=== PATIENT | male | born 1965 | race Caucasian/White ===

== ENCOUNTER 2021-10-10 23:26 | Inpatient (IN) | payer OTHER ==
--- NOTE | 2021-10-10 23:31 | ED ---
Recheck HPI - General Stated Complaint: Chest Pain Time Seen by Provider: 10/10/21 23:28 Source: RN notes reviewed, old records reviewed Mode of arrival: EMS Limitations: no limitations - History of Present Illness Initial Comments: This is a 55-year-old male to the emergency room today for evaluation. The patient presents today for evaluation regards to transfer him regards to episode of ventricular tachycardia. This time patient is without significant complaint. She does have history of atrial flutter and history of PVCs MD Complaint: other (Monitoring for abnormal heart rhythm) -: hour(s) Returns Today for: other (Symptoms are improved) Symptoms Since Prior Visit: no new symptoms Context: planned re-check Associated Symptoms: none Treatments Prior to Arrival: other medications, other (Patient was cardioverted at prior hospital) - Related Data Allergies Allergy/AdvReac Type Severity Reaction Status Date / Time No Known Allergies Allergy Verified 10/10/21 23:40 Review of Systems ROS Statement: Those systems with pertinent positive or pertinent negative responses have been documented in the HPI. ROS Other: All systems not noted in ROS Statement are negative. General Exam General appearance: alert, in no apparent distress Head exam: Present: atraumatic, normocephalic, normal inspection Eye exam: Present: normal appearance, PERRL, EOMI. Absent: scleral icterus, conjunctival injection, periorbital swelling ENT exam: Present: normal exam, mucous membranes moist Neck exam: Present: normal inspection. Absent: tenderness, meningismus, lymphadenopathy Respiratory exam: Present: normal lung sounds bilaterally. Absent: respiratory distress, wheezes, rales, rhonchi, stridor Cardiovascular Exam: Present: regular rate, normal rhythm, normal heart sounds. Absent: systolic murmur, diastolic murmur, rubs, gallop, clicks GI/Abdominal exam: Present: soft, normal bowel sounds. Absent: distended, tenderness, guarding, rebound, rigid Extremities exam: Present: normal inspection, full ROM, normal capillary refill. Absent: tenderness, pedal edema, joint swelling, calf tenderness Back exam: Present: normal inspection Neurological exam: Present: alert, oriented X3, CN II-XII intact Psychiatric exam: Present: normal affect, normal mood Skin exam: Present: warm, dry, intact, normal color. Absent: rash Course Vital Signs 10/10/21 23:40 Temperature 97.3 F L Pulse Rate 70 Respiratory 16 Rate Blood Pressure 118/64 O2 Sat by Pulse 98 Oximetry - Reevaluation(s) Reevaluation #1: 10/11/21 00:19 medical record is reviewed Reevaluation #2: 10/11/21 00:19 transferring paperwork is reviewed Reevaluation #3: 10/11/21 00:19 Patient informed results and questions answered Medical Decision Making - Medical Decision Making 55 male to the ER today for evaluation. Patient presents today for evaluation regards to abnormal heart rate with PVCs. Patient had episode of ventricular tachycardia which was cardioverted prior facility patient be admitted Here on amiodarone and have cardiology see Disposition Clinical Impression: Atrial flutter, Tachycardia, Ventricular tachycardia, Ventricular premature beats Disposition: ADMITTED IP TO THIS HOSP Condition: Fair Is patient prescribed a controlled substance at d/c from ED?: No Referrals: Ellie Gonzales NPC [Primary Care Provider] - 1-2 days
[2021-10-11] MEDS ORDERED: HEPARIN SOD,PORK IN 0.45% NACL 25,000 UNIT in 0.45% NACL 1 250ML.BAG IV SCH
[2021-10-11] MEDS ORDERED: AMIODARONE IN DEXTROSE,ISO-OSM 360 MG/200 ML PLAST..BAG IV ONE
[2021-10-11] MEDS ORDERED: MORPHINE SULFATE 4 MG/ML SYRINGE IV PRN (00:13)
[2021-10-11] MEDS ORDERED: NITROGLYCERIN SL TABS 0.4 MG TAB SUBLINGUAL PRN (00:13)
[2021-10-11] MEDS: SODIUM CHLORIDE 0.9% 1,000 ML IV SCH ×3 (00:45→12:40)
[2021-10-11] MEDS: AMIODARONE 360 MG in DEXTROSE 5% IN WATER 200 ML IV ONE ×4 (03:46)
[2021-10-11] MEDS: AMIODARONE 450 MG in DEXTROSE 5% IN WATER 250 ML IV SCH ×4 (04:00→18:53)
--- NOTE | 2021-10-11 09:00 | P.CRDCN ---
History of Present Illness Consult date: 10/11/21 Consult reason: other (Ventricular tachycardia) Chief complaint: Chest pain History of present illness: 55-year-old gentleman is [facility] [place] after his presentation there with chest pain and ventricular tachycardia. He has a history of PVCs with unsuccessful attempt at ablation and permanent pacemaker secondary to bradycardia in 2019 developed symptoms of congestive heart failure several weeks ago who was treated with diuretics with improvement in his symptoms he also had: A virus infection 4 weeks ago He follows with a stock drier tender in [place] but because he had problems getting in to his stock drier tender he went to [facility] and had been evaluated there by stock drier tender he hasn't had any testing done. Patient had a cardiac MRI in 2019 that revealed a structurally normal heart and normal LV function. A cardiac catheterization that revealed normal coronary arteries he had a stress echo that was negative I don't have the information on his permanent pacemaker but apparently he had a decrease in his LV function recently for which he went to [facility] At the time of my evaluation patient appears comfortable at rest and is free of symptoms. Yesterday his symptomatology started but shortness of breath chest discomfort dizziness and not feeling well symptoms were sudden onset moderate to severe intensity and he presented to the emergency room there he went into sustained monomorphic ventricular tachycardia for which he underwent defibrillation He is baseline rhythm is sinus and is intermittently pacing and he also has PVCs He is currently in IV amiodarone and IV heparin Troponin is elevated I'm going to obtain a 2-D echo to document his LV function I'm going to get records and his permanent pacemaker I advised him to undergo a cardiac catheterization to rule out significant obstructive CAD and if necessary do revascularization I will ask Dr. Dow the armored transport service manager to evaluate the patient for possible EP study VT ablation and are AICD placement Review of Systems Constitutional: Denies chills. Denies fever. Eyes: Denies blurred vision. Denies pain. Ears, nose, mouth and throat: Denies headache. Denies sore throat. Cardiovascular: Significant for chest pain Denies shortness of breath. Respiratory: Denies cough. Gastrointestinal: Denies abdominal pain. Denies diarrhea. Denies nausea. Denies vomiting. Musculoskeletal: Denies myalgias. Integumentary: Denies pruritus. Denies rash. Neurological: Denies numbness. Denies weakness. Psychiatric: Denies anxiety. Denies depression. Endocrine: Denies fatigue. Denies weight change. Genitourinary: Denies burning, hematuria, frequency of urination. Hematological: No anemia or excess bleeding. Past Medical History Additional Past Medical History / Comment(s): PVC's. Cardiomyopathy. Congestive heart failure. Permanent pacemaker History of Any Multi-Drug Resistant Organisms: None Reported Past Surgical History: Ablation, Pacemaker Past Psychological History: No Psychological Hx Reported Smoking Status: Never smoker Past Alcohol Use History: Occasional Past Drug Use History: None Reported Medications and Allergies Home Medications and Allergies Comment(s): I don't have a list of patient's home medications at this time Allergies Allergy/AdvReac Type Severity Reaction Status Date / Time Penicillins Allergy Unknown Verified 10/11/21 07:16 Physical Exam Vitals: Vital Signs Temp Pulse Resp BP Pulse Ox 10/11/21 08:32 98.2 F 10/11/21 08:31 70 18 114/84 97 10/11/21 06:57 70 16 111/78 98 10/11/21 03:00 69 16 102/70 98 10/11/21 02:00 69 15 109/70 10/11/21 01:00 72 8 L 105/68 10/10/21 23:40 97.3 F L 70 16 118/64 98 Intake and Output 10/10/21 10/11/21 10/11/21 22:59 06:59 14:59 Intake Total 153.887 Balance 153.887 Intake: Intake, IV Titration 153.887 Amount Amiodarone 360 mg In 153.887 Dextrose 5% in Water 200 ml @ 1 MG/MIN 33.333 mls/ hr IV .Q6H ONE Rx#: [id number] Other: Weight 122.47 kg General: The patient is awake and alert, in no distress, and does not appear acutely ill. Skin: Skin is warm and dry and no rashes or lesions are noted. Eye: Pupils are equal, round and reactive to light, extra-ocular movements are intact; there is normal conjunctiva bilaterally. Ears, nose, mouth and throat: There are moist mucous membranes and no oral lesions. Neck: The neck is supple, there is no tenderness or JVD. Cardiovascular: There is a regular rate and rhythm. No murmur, rub or gallop is appreciated. Respiratory: Lungs are clear to auscultation, respirations are non-labored, breath sounds are equal. Gastrointestinal: Soft, non-distended, non-tender abdomen without masses or organomegaly noted. There is no rebound or guarding present. Bowel sounds are unremarkable. Back: There is no tenderness to palpation in the midline. There is no obvious deformity. Musculoskeletal: Normal ROM, no tenderness, There is no pedal edema. There is no calf tenderness or swelling. Extremities: No edema. Vascular: Femoral pulse is normal. Posterior tibial pulses are normal .Dorsalis pedis is palpable. Neurological: CN II-XII intact. There are no obvious motor or sensory deficits. Speech is normal. Psychiatric: Cooperative, appropriate mood & affect, normal judgment. Results Cardiac Enzymes 10/11/21 10/11/21 Range/Units 00:56 03:43 Troponin I 1.480 H* 2.070 H* (0.000-0.034) ng/mL Coagulation 10/11/21 Range/Units 03:43 APTT 44.2 H (22.0-30.0) sec Current Medications Generic Name Dose Route Start Last Admin Trade Name Freq PRN Reason Stop Dose Admin Aspirin 325 mg 10/12/21 09:00 Aspirin 325 Mg Tab PO DAILY MARCELINO Heparin Sodium/Sodium Chloride 250 mls @ 14.696 mls/hr 10/11/21 00:00 10/11/21 00:00 25,000 unit/ Sodium Chloride IV 8.17 units/kg/hr .Q17H1M MARCELINO 10 mls/hr Administration Protocol 12 UNITS/KG/HR Sodium Chloride 1,000 mls @ 100 mls/hr 10/11/21 00:15 10/11/21 00:45 Saline 0.9% IV 100 mls/hr .Q10H MARCELINO Administration Amiodarone HCl 450 mg/ 250 mls @ 16.667 mls/hr 10/11/21 04:00 10/11/21 04:00 Dextrose/Water IV 10/11/21 21:59 0.5 mg/min .Q15H MARCELINO 16.667 mls/hr Administration Protocol 0.5 MG/MIN Morphine Sulfate 4 mg 10/11/21 00:13 Morphine Sulfate 4 Mg/Ml Syringe IV Q4HR PRN Chest Pain Nitroglycerin 0.4 mg 10/11/21 00:13 Nitroglycerin Sl Tabs 0.4 Mg Tab SUBLINGUAL Q5M PRN Chest Pain Intake and Output 10/10/21 10/11/21 10/11/21 22:59 06:59 14:59 Intake Total 153.887 Balance 153.887 Intake: Intake, IV Titration 153.887 Amount Amiodarone 360 mg In 153.887 Dextrose 5% in Water 200 ml @ 1 MG/MIN 33.333 mls/ hr IV .Q6H ONE Rx#: [id number] Other: Weight 122.47 kg EKG Interpretations (text) normal sinus rhythm Assessment and Plan Assessment: Symptomatic ventricular tachycardia Nonsustained VT history of bradycardia status post permanent pacemaker History of congestive heart failure Plan: Review his outpatient records Obtain CBC and electrolytes 2-D echo Cardiac catheterization to rule out obstructive CAD Continue IV amiodarone and beta blockers Consult EP
[2021-10-11] MEDS: METOPROLOL TARTRATE 12.5 MG TAB PO SCH ×2 (09:04→20:39)
[2021-10-11] MEDS ORDERED: ASPIRIN 325 MG TAB PO STA (09:30)
[2021-10-11] MEDS ORDERED: VERAPAMIL 2.5 MG/ML 2 ML AMP ONE (09:55)
[2021-10-11] MEDS ORDERED: LIDOCAINE 1% INJ 10MG/ML (20 ML MDV) ONE (09:55)
[2021-10-11] MEDS ORDERED: IV FLUID CONTINUATION 500 ML IV ONE (10:15)
[2021-10-11] MEDS ORDERED: MIDAZOLAM 2 MG/2 ML VIAL IV ONE (10:26)
[2021-10-11] MEDS ORDERED: fentaNYL (PF) 50 MCG/ML 2 ML AMP IV ONE (10:26)
[2021-10-11] MEDS ORDERED: LIDOCAINE 1% INJ 10MG/ML (20 ML MDV) SQ ONE (10:30)
--- NOTE | 2021-10-11 10:54 | ECHOF ---
Referral Reason:[facility] MEASUREMENTS -------- HEIGHT: 180.3 cm WEIGHT: 122.5 kg BP: RVIDd: 3.9 cm (< 3.3) IVSd: 1.5 cm (0.6 - 1.1) LVIDd: 4.5 cm (3.9 - 5.3) LVPWd: 1.7 cm (0.6 - 1.1) IVSs: 2.3 cm LVIDs: 2.9 cm LVPWs: 2.0 cm Ao Diam: 3.3 cm (2.0 - 3.7) AV Cusp: 2.1 cm (1.5 - 2.6) LA Diam: 2.6 cm (2.7 - 3.8) MV EXCURSION: 13.189 mm (> 18.000) MV EF SLOPE: 61 mm/s (70 - 150) EPSS: 1.4 cm MV E Osmany: 0.38 m/s MV DecT: 152 ms MV A Osmany: 0.62 m/s MV E/A Ratio: 0.62 RAP: 5.00 mmHg RVSP: 16.30 mmHg FINDINGS -------- Pacerwire seen in RV and RA. This was a technically difficult study with suboptimal views. The left ventricular size is normal. There is mild concentric left ventricular hypertrophy. Overa ll left ventricular systolic function is mild-moderately impaired with, an EF between 40 - 45 %. The right ventricle is mild to moderately enlarged. The left atrial size is normal. The right atrial size is normal. Lumason used The aortic valve is trileaflet and appears structurally normal. The mitral valve is normal. Mild mitral regurgitation is present. The tricuspid valve appears structurally normal. Mild tricuspid regurgitation present. Right vent ricular systolic pressure is normal at < 35 mmHg. There is no pulmonic regurgitation present. The aortic root size is normal. IVC Not well visulized. There is a trivial pericardial effusion present. CONCLUSIONS -------- 1. Pacerwire seen in RV and RA. 2. The left ventricular size is normal. 3. There is mild concentric left ventricular hypertrophy. 4. Overall left ventricular systolic function is mild-moderately impaired with, an EF between 40 - 45 %. 5. The right ventricle is mild to moderately enlarged. 6. Mild mitral regurgitation is present. 7. Mild tricuspid regurgitation present. 8. There is a trivial pericardial effusion present. VETERINARIAN: Aspen Ralph RDCS
[2021-10-11] MEDS ORDERED: IOPAMIDOL-370 100ML BTL INJ ONE (10:59)
[2021-10-11 11:35] LABS: HGB 14.8 gm/dL (13.0-17.5); MCH 30.1 pg (25.0-35.0); MCHC 32.1 g/dL (31.0-37.0); MCV 93.8 fL (80.0-100.0); Mean Platelet Volume 7.4; Platelet Count 219 k/uL (150-450); RBC 4.91 m/uL (4.30-5.90); RDW 12.9 % (11.5-15.5); WBC 6.6 k/uL (3.8-10.6)
[2021-10-11] MEDS ORDERED: RX INFO: IV CONTRAST WAS GIVEN 1 EACH MISC MISCELLANE PRN (11:35)
[2021-10-11 11:57] LABS: African American GFR (CKD) >90 (>60 ml/min/1.73 sqM); Anion Gap 7 mmol/L; Blood Urea Nitrogen 26 mg/dL (9-20); Calcium 8.9 mg/dL (8.4-10.2); Carbon Dioxide 26 mmol/L (22-30); Chloride 105 mmol/L (98-107); Glucose 111 mg/dL (74-99); Non-African American GFR(CKD) 82 (>60 ml/min/1.73 sqM); Potassium 3.9 mmol/L (3.5-5.1); Sodium 138 mmol/L (137-145)
--- NOTE | 2021-10-11 13:02 | CC ---
CARDIAC CATHETERIZATION REPORT INDICATION: Ventricular tachycardia. PROCEDURE NOTE: After obtaining informed consent, left heart catheterization and coronary angiogram were performed via the right femoral artery using standard Jorge Alberto catheters. Patient tolerated the procedure well without any obvious immediate complications. A femoral angiogram was performed and Angio-Seal was deployed for hemostasis. Patient received moderate conscious sedation. Total sedation time was 32 minutes. I initially attempted vascular access on the right radial artery and was unsuccessful. FINDINGS: HEMODYNAMICS: Left ventricular end-diastolic pressure is 16 mm. There is no significant gradient across the aortic valve. LEFT VENTRICULOGRAM: Left ventriculogram was not performed. ANGIOGRAPHIC DATA: Left main coronary artery. Left main coronary artery is a normal-sized vessel and is free of stenosis. It divides into left anterior descending coronary artery and circumflex coronary artery. LAD and its branches, circumflex coronary artery and its branches are free of significant stenosis. Right coronary artery is a large dominant vessel and is free of significant stenosis. CONCLUSIONS: 1. Normal coronary arteries. 2. Normal left ventricular end-diastolic pressure. PLAN: I reviewed angiographic data with the patient and told him that his that he does not have significant obstructive CAD. MMODL / IJN: [id number] /
--- NOTE | 2021-10-11 16:30 | XR ---
EXAMINATION TYPE: XR chest 2V DATE OF EXAM: 10/11/2021 COMPARISON: NONE HISTORY: CHF. TECHNIQUE: Frontal and lateral views of the chest are obtained. FINDINGS: Somewhat low lung volumes. There is no suspicious focal air space opacity, pleural effusio n, or pneumothorax seen. Cardiomegaly with dual-lead pacemaker noted. The osseous structures are in tact. IMPRESSION: Cardiomegaly without acute pulmonary process or overt failure.
--- NOTE | 2021-10-11 17:01 | P.HPIM ---
History of Present Illness H&P Date: 10/11/21 Chief Complaint: Chest pain This is a pleasant 55-year-old patient who follows with Dr. Daley. Has an extensive cardiac history. Chronic stable medical conditions include atrial flutter with ablation that was unsuccessful, then in [place], congestive heart failure, cardiac catheterization in 1999 that was negative, permanent pacemaker for bradycardia. About 3 weeks ago patient started becoming short of breath and felt more bloated. Went to his family doctor was started on Lasix. Patient did loose weight. Echocardiogram showed EF around 45%. Yesterday had gone to [facility] and coming back he became dizzy the chest discomfort. Bradycardia normal left arm. Lasted for quite a while. Was with activity. Some dizziness. Patient presented to [facility] with ventricular tachycardia. Patient subsequently was transferred here. Patient's troponins were positive. Patient is having sustained monomorphic V. tach he was defibrillated. Was put on IV amiodarone and IV heparin. Earlier today patient was taken for a cardiac catheterization by Dr. aLcy and did not show any significant disease. Post cath patient is on IV amiodarone. Review of systems: GEN.: Tired EYES: None HEENT: None NECK: None RESPIRATORY: As above CARDIOVASCULAR: As above GASTROINTESTINAL: None GENITOURINARY: None MUSCULOSKELETAL: None LYMPHATICS: None HEMATOLOGICAL: None PSYCHIATRY: None NEUROLOGICAL: None Past medical history to include: Atrial flutter with ablation unsuccessful, permanent pacemaker for bradycardia, congestive heart failure from viral infection. Social history: Patient does farming and also sells seeds. . No smoking. Alcohol occasionally. Family history: Hypertension, CAD Physical examination: VITAL SIGNS: 97.3, 70, 16, 118/64, 98% room air GENERAL: BMI 35.6, reclining in bed, awake, tired. EYES: Pupils equal. Conjunctiva normal. HEENT: External appearance of nose and ears normal, oral cavity grossly normal. NECK: JVD not raised; masses not palpable. HEART: First and second heart sounds are normal; no edema. LUNGS: Respiratory rate normal; clear to auscultation. ABDOMEN: Soft, nontender, liver spleen not palpable, no masses palpable. PSYCH: Alert and oriented x3; mood and affect normal. MUSCULOSKELETAL:No Clubbing/cyanosis;muscles-grossly intact NEUROLOGICAL: Cranial nerves grossly intact; no facial asymmetry, power and sensation grossly intact. LYMPHATICS: No lymph nodes palpable in the axilla and neck INVESTIGATIONS, reviewed in the clinical context: White count 6.6 hemoglobin 14.8 platelets 219 potassium 3.9 creatinine 1.03 Chest x-ray film personally reviewed by me-coronary megaly. Lung can clear. Pacemaker Troponin I 1.480, 2.0 Coronavirus [PCR]: Not detected Telemetry strip personally reviewed by me: Sinus rhythm 2-D echocardiogram: EF 40-45% mild mitral and tricuspid regurgitation. Assessment and plan: -Monomorphic ventricular tachycardia. Received IV amiodarone. Cardiac cath did not show any disease. -Acute non-Q wave myocardial infarction from hemodynamic mismatch precipitated b y ventricular tachycardia. Cardiac cath: Normal coronaries -Paroxysmal atrial flutter, currently sinus rhythm Telemetry. Lopressor 12.5 by mouth twice a day -Obesity BMI 35.6 Weight loss measures and follow with PCP -Acute on chronic nonischemic cardiomyopathy EF systolic dysfunction 40-45% Patient does take Demadex at home -IV heparin monitoring: discontinued Follow PTT Patient status post cardiac catheterization. On IV amiodarone drip. Lopressor. Normal saline 75 mL an hour per cardiology. Keep a close eye of the fluid status. Discussed with patient. Follow with cardiology. Past Medical History Past Medical History: Atrial Flutter Additional Past Medical History / Comment(s): PVC's. Cardiomyopathy. Congestive heart failure. Permanent pacemaker History of Any Multi-Drug Resistant Organisms: None Reported Past Surgical History: Ablation, Pacemaker Past Psychological History: No Psychological Hx Reported Smoking Status: Never smoker Past Alcohol Use History: Occasional Past Drug Use History: None Reported - Past Family History Father Family Medical History: Coronary Artery Disease (CAD), Hypertension Additional Family Medical History / Comment(s): Father had coronary stents/CABG Mother Family Medical History: Congestive Heart Failure (CHF) Medications and Allergies Home Medications Medication Instructions Recorded Confirmed Type Metoprolol Tartrate [Lopressor] 12.5 mg PO BID 10/11/21 10/11/21 History Torsemide [Demadex] 40 mg PO DAILY 10/11/21 10/11/21 History Allergies Allergy/AdvReac Type Severity Reaction Status Date / Time Penicillins Allergy Unknown Verified 10/11/21 07:16 Physical Exam Vitals: Vital Signs Temp Pulse Resp BP Pulse Ox 10/11/21 09:50 98 F 78 16 128/78 97 10/11/21 08:32 98.2 F 10/11/21 08:31 70 18 114/84 97 10/11/21 06:57 70 16 111/78 98 10/11/21 03:00 69 16 102/70 98 10/11/21 02:00 69 15 109/70 10/11/21 01:00 72 8 L 105/68 10/10/21 23:40 97.3 F L 70 16 118/64 98 Intake and Output 10/10/21 10/11/21 10/11/21 22:59 06:59 14:59 Intake Total 153.887 Balance 153.887 Intake: Intake, IV Titration 153.887 Amount Amiodarone 360 mg In 153.887 Dextrose 5% in Water 200 ml @ 1 MG/MIN 33.333 mls/ hr IV .Q6H ONE Rx#: [id number] Other: Weight 122.47 kg Results CBC & Chem 7: 10/11/21 11:16 10/11/21 11:16 Labs: Abnormal Lab Results - Last 24 Hours (Table) 10/11/21 10/11/21 10/11/21 Range/Units 00:56 03:43 03:43 APTT 44.2 H (22.0-30.0) sec Troponin I 1.480 H* 2.070 H* (0.000-0.034) ng/mL
[2021-10-11] MEDS: METOPROLOL TARTRATE 25 MG TAB PO SCH (20:47)
--- NOTE | 2021-10-11 21:08 | P.EPCON ---
Electrophysiology Consult - EP Consult Electrophysiology Consult: This is Dr. Mathis dictating an electrophysiology consult on this patient The patient was interviewed and examined by me I had a very detailed discussion with the patient and his who was on the phone IMPRESSION / ASSESSMENT: Wide complex tachycardia consistent with left bundle branch block aberrancy, likely SVT with aberrancy History of SVT documented by the patient's financial planning consultant on pacemaker interrogation in April 2021 History of PVCs and normal cardiac MRI in the year 2019, no evidence for arrhythmogenic cardio myopathy or myocarditis at that time History of EP study and ganglionic ablation for bradycardia. PVCs were not inducible in 2019 Evidence of sick sinus syndrome and bradycardia status post dual-chamber pacemaker implant, Medtronic Intermittent RV pacing noted on twelve-lead EKGs over the last 24 hours, atrial pacing noted consistently 2-D echo today shows reduced LV systolic function and an enlarged right ventricle Reduced LV systolic function could be a result of RV pacing but I do not know the RV pacing percentage at this time However it could be extension of involvement from the right ventricular disease/ arrhythmogenic cardio myopathy/ ARVC However the time course of this development is quite rapid over the last 2 years, the possibility of a right ventricular myocarditis such as giant cell myocarditis should be considered although this is not a fulminant involvement PLAN: I would recommend interrogation of the device to confirm that this was an SVT. I would recommend a LifeVest since my working diagnosis is arrhythmogenic cardio myopathy/or right ventricular myocarditis I would recommend a diagnostic EP study after a few days since the patient has received 1 g of amiodarone IV No more IV amiodarone until the EP study is performed Metoprolol 25 mg twice daily for now Cardiac MRI subsequently, prior to any device upgrade After EP study and any SVT ablation and after the cardiac MRI and interrogation of the device, then the decision regarding implantation of a defibrillator with LV lead pacing, biventricular device Hopefully the RV pacing lead can be extracted since it is only 2-1/2 years old In the interim a LifeVest should be prescribed HPI Patient started getting dizzy and lightheaded yesterday when he was coming back and was driving He managed to get home and laid on the couch and he is feeling poorly short of breath but not really complaining of palpitations and os to son called EMS In EMS arrived the twelve-lead EKG showed a wide complex tachycardia at a rate of around 215 beats a minute with a left bundle branch block morphology However the QRS are upright in the inferior leads on the EMS EKG He was taken to [facility] where repeat EKG was performed and it showed a tachycardia at the rate of 208 beats a minute with a left bundle branch block morphology without concordance on the precordial leads but with negative QRSs in leads 3 and aVF Therefore there is a difference in the morphology of the 2 EKGs during the same tachycardia likely representing lead position He was cardioverted, start amiodarone and transferred to [facility] He is he underwent coronary angiography since his cardiac enzymes are abnormal and there was a presumptive diagnosis of ventricular tachycardia Coronary arteries are normal At this time the patient is resting comfortably in bed and has no symptoms ROS: No fever chills or rigors, no cough, phlegm or expectoration, no nausea, vomiting or diarrhea, no hematuria, dysuria, no musculoskeletal complaints, no strokes or seizures, no skin lesions. EXAMINATION: Blood pressure 89/69 115/75 Heart rates in the 70s atrial paced rhythm Normal heart sounds Normal breath sounds No lower extremity edema Orthopnea REVIEW OF LABS, ECG & MEDICAL DATA Abnormal cardiac enzymes of 1.48 and 2.1 consistent with hypoperfusion secondary to the tachycardia Normal coronary arteries Twelve-lead EKG at [facility] showed a wide complex tachycardia at 208 beats a minute with a left bundle branch block morphology with an R ST ration of 80 ms consistent with aberrant conduction There are no evidence for fusion beats a capture beats This is SVT with aberrancy In reviewing the patient's financial planning consultant notes from April 2021, the note states that the patient has SVT most likely AV conchita reentry based upon pacemaker interrogation done at that time Twelve-lead EKG during sinus rhythm performed by me this evening, after receiving a gram of amiodarone shows Atrial paced rhythm mildly prolonged AZ interval QRS fractionation with a split QRS in the precordial leads of V1 through V3, consistent with delayed terminal conduction, epsilon waves
[2021-10-12] MEDS: SODIUM CHLORIDE 0.9% 1,000 ML IV SCH (02:19)
[2021-10-12] MEDS ORDERED: ASPIRIN 325 MG TAB PO SCH (09:00)
[2021-10-12] MEDS: METOPROLOL TARTRATE 25 MG TAB PO SCH ×2 (09:01→21:29)
[2021-10-12] MEDS: ASPIRIN 81 MG PO SCH (09:01)
[2021-10-12 11:15] LABS: Chol/HDL Ratio 5.38 Ratio; LDL Cholesterol,Calculated 108.1 mg/dL (0.0-131.0)
--- NOTE | 2021-10-12 12:36 | P.PN ---
Subjective This is a 55-year-old male with a past medical history of SVT, PVCs, sick sinus syndrome and bradycardia status post dual-chamber pacemaker implant 2019 (medtronic). He follows with a rehabilitation counsellor in [place] but because he had problems getting into his rehabilitation counsellor he went to [facility] and had been evaluated there by rehabilitation counsellor he hasn't had any testing done. We are consulted for ventricular tachycardia. Patient was transferred to [facility] from [place] after his presentation there with chest pain and ventricular tachycardia. He had developed symptoms of congestive heart failure several weeks ago who was treated with diuretics with improvement in his symptoms he also had a virus infection 4 weeks ago. Patient had a cardiac MRI in 2019 that revealed a structurally normal heart and normal LV function. A cardiac catheterization that revealed normal coronary arteries he had a stress echo that was negative. Apparently he had a decrease in his LV function recently for which he went to [facility]. Patient presented to the emergency department with complaints of shortness of breath, chest discomfort, dizziness and not feeling well symptoms were sudden onset moderate to severe intensity. In the ER he went into sustained monomorphic ventricular tachycardia for which he underwent defibrillation. He was started on IV amiodarone and IV heparin. Troponin is elevated at 2.7. Echocardiogram revealed EF 4045 percent, enlarged right ventricle mild mitral regurgitation, mild tricuspid regurgitation. Patient underwent cardiac catheterization with Dr. Pinon which revealed normal coronary arteries and normal LVEDP. 10/12/21 Patient seen and examined at bedside, he has no complaints. He feels well. Denies any chest pain, shortness of breath, leg numbness, dizziness, palpitations. Blood pressure 112/70, heart rate 69, afebrile, saturation 96% on room air. Telemetry reviewed, patient is atrial pacing, no further evidence of SVT. He is currently maintained on metoprolol titrate 25 mg twice a day, aspirin 81 mg daily, torsemide 40 mg daily. GENERAL: Well-appearing, well-nourished and in no acute distress. NECK: Supple without JVD or thyromegaly. LUNGS: Breath sounds clear to auscultation bilaterally. Respiration equal and unlabored. No wheezes, rales or rhonchi. HEART: Regular rate and rhythm without murmurs, rubs or gallops. S1 and S2 heard. EXTREMITIES: Normal range of motion, no edema. No clubbing or cyanosis. Peripheral pulses intact. SKIN: Right groin site, clean dry intact, no hematoma 2+peripheral pulses ASSESSMENT Symptomatic supraventricular tachycardia History of SVT History of PVCs Sick sinus syndrome and bradycardia status post dual-chamber pacemaker implant in 2019 Non-ischemic cardiomyopathy History of congestive heart failure PLAN Patient evaluated by Dr. Mathis, wide complex tachycardia consistent with left bundle branch block aberrancy, likely SVT with aberrancy. Interrogation of device to be performed today Recommend a LifeVest since due to risk of arrhythmia and sudden cardiac secondary to diagnosis possibly arrhythmogenic cardiomyopathy/or right ventricular myocarditis From a cardiology perspective, patient may be discharged once LifeVest delivered Patient will follow up with Dr Pinon outpatient and likely diagnostic EP study outpatient with Dr. Mathis Nurse Practitioner note has been reviewed, I agree with a documented findings and plan of care. Patient was seen and examined. Objective - Vital Signs Vital signs: Vital Signs Temp 98.1 F 10/12/21 08:00 Pulse 69 10/12/21 08:00 Resp 18 10/12/21 08:00 BP 112/70 10/12/21 08:00 Pulse Ox 96 10/12/21 08:00 Intake & Output 10/11/21 10/12/21 10/12/21 18:59 06:59 18:59 Intake Total 1898.061 120 Output Total 500 Balance 1398.061 120 Weight 122.47 kg 126.8 kg Intake: IV 450 Intake, IV Titration 248.061 Amount Amiodarone 450 mg In 248.061 Dextrose 5% in Water 250 ml @ 0.5 MG/MIN 16.667 mls/hr IV .Q15H MARCELINO Rx#: [id number] Oral 1200 120 Output: Urine 500 Other: # Voids 1 2 - Labs CBC & Chem 7: 10/11/21 11:16 10/11/21 11:16 Labs: Abnormal Lab Results - Last 24 Hours (Table) 10/12/21 Range/Units 07:46 HDL Cholesterol 30.50 L (40.00-60.00) mg/dL
[2021-10-12] MEDS: TORSEMIDE 20 MG TAB PO SCH (13:33)
--- NOTE | 2021-10-12 13:54 | CDI ---
Documentation Clarification Form Date: 10/12/2021 01:40:36 PM From: Nohemy Beard CCS, CCDS Admit Date: 10/11/2021 12:13:00 AM Patient Name: Ghassan Ortiz Visit Number: [id number] Discharge Date: ATTENTION: The Clinical Documentation Specialists (CDI) and [facility] Coding Staff appreciate your assistance in clarifying documentation. Please respond to the clarification below the line at the bottom and electronically sign. The CDI & [facility] Coding staff will review the response and follow-up if needed. Please note: Queries are made part of the Legal Health Record. If you have any questions, please contact the author of this message via ITS. Dr. Pawan Banuelos: Per the 10/11 History & Physical, the following is documented: Acute Non-Q Wave Myocardial Infarction from hemodynamic mismatch precipitated by ventricular tachycardia. Per the 10/12 Cardiology Progress Note status post Heart Catheterization: Symptomatic supraventricular tachycardia. Additional clarification regarding the type of SC is requested. Patient History/Risk Factors per the 10/11 H/P: Atrial Flutter status post unsuccessful ablation, CHF nos, Previous Heart Catheterization 2000: negative, Permanent Pacemaker secondary to Bradycardia, Obesity, BMI 35.6, Acute on Chronic Nonischemic Cardiomyopathy with EF 40-45%. Clinical Indicators: Presented to the ED on 10/10 via EMS with Chest Pain. Transfer from [facility] where he presented with chest pain & ventricular tachycardia. Admit with Atrial Flutter, Tachycardia, Ventricular Tachycardia, Ventricular Premature Beats 10/10 VS: T 97.3, P 70, R 16, BP 118/64, PO 98 RA 10/11 LAB: APTT 44.2, BUN 26, Glucose 111, Troponin 2.070 10/11 CXR: Cardiomegaly without acute pulmonary process or overt failure. 10/11 Heart Catheterization: Normal coronary arteries. Treatment 10/11: Telemetry, O2 2Lnc, IV Amiodarone 200 mls @ 33.333 mls/hr q6H, IV Heparin 250 mls @ 14.696 mls/hr q17H, IV Morphine 4 mg q4/prn, Nitro sl, IV Na Cl 1,000 mls @ 100 mls/hr q10H, IV Amiodarone 250 mls @ 16.667 mls/hr q15H Please clarify the etiology the following: [ ] Type 2 SC due, please specify cause: [ ] Acute Non-Q Wave SC [ ] Myocardial Infarction ruled out [ ] Unable to determine [ ] Other Condition, please specify (Template Last Revised: November 2020) Acute non-Q-wave SC type II secondary to hemodynamic mismatch due to ventricular tachycardia MTDD
--- NOTE | 2021-10-12 15:29 | P.PN ---
Progress Note - Text Progress Note Date: 10/12/21 Chief Complaint: Chest pain This is a pleasant 55-year-old patient who follows with Dr. Dlaey. Has an extensive cardiac history. Chronic stable medical conditions include atrial flutter with ablation that was unsuccessful, then in [place], congestive heart failure, cardiac catheterization in 1999 that was negative, permanent pacemaker for bradycardia. About 3 weeks ago patient started becoming short of breath and felt more bloated. Went to his family doctor was started on Lasix. Patient did loose weight. Echocardiogram showed EF around 45%. Yesterday had gone to [facility] and coming back he became dizzy the chest discomfort. Bradycardia normal left arm. Lasted for quite a while. Was with activity. Some dizziness. Patient presented to [facility] with ventricular tachycardia. Patient subsequently was transferred here. Patient's troponins were positive. Patient is having sustained monomorphic V. tach he was defibrillated. Was put on IV amiodarone and IV heparin. Earlier today patient was taken for a cardiac catheterization by Dr. Lacy and did not show any significant disease. Post cath patient is on IV amiodarone. October 12: Patient had his pacemaker checked today. It did show V. tach. IV amiodarone was earlier discontinued. LifeVest has been ordered by Dr. Deandre Mathis. Patient feels better. Eating well. Up in a chair. Review of systems: Was done for constitutional, cardiovascular, GI, pulmonary. relevant finding as above Active Medications Aspirin (Aspirin 81 Mg) 81 mg PO DAILY [facility] Last Admin: 10/12/21 09:01 Dose: 81 mg Documented by: Metoprolol Tartrate (Metoprolol Tartrate 25 Mg Tab) 25 mg PO BID [facility] Last Admin: 10/12/21 09:01 Dose: 25 mg Documented by: Miscellaneous Information (Rx Info: Iv Contrast Was Given 1 Each Misc) 1 each MISCELLANE DAILY PRN PRN Reason: Per Protocol Stop: 10/13/21 11:35 Torsemide (Torsemide 20 Mg Tab) 40 mg PO DAILY [facility] Last Admin: 10/12/21 13:33 Dose: 40 mg Documented by: Past medical history to include: Atrial flutter with ablation unsuccessful, permanent pacemaker for bradycardia, congestive heart failure from viral infection. Social history: Patient does farming and also sells seeds. . No smoking. Alcohol occasionally. Family history: Hypertension, CAD Physical examination: VITAL SIGNS: 98.1, 69, 18, 112/70, 96% room air GENERAL: Sitting up in a chair, awake, comfortable EYES: Pupils equal. Conjunctiva normal. HEENT: External appearance of nose and ears normal, oral cavity grossly normal. NECK: JVD not raised; masses not palpable. HEART: First and second heart sounds are normal; no edema. LUNGS: Respiratory rate normal; clear to auscultation. ABDOMEN: Soft, nontender, liver spleen not palpable, no masses palpable. PSYCH: Alert and oriented x3; mood and affect normal. MUSCULOSKELETAL:No Clubbing/cyanosis;muscles-grossly intact INVESTIGATIONS, reviewed in the clinical context: LDL 108 White count 6.6 hemoglobin 14.8 platelets 219 potassium 3.9 creatinine 1.03 Chest x-ray film personally reviewed by me-coronary megaly. Lung can clear. Pacemaker Troponin I 1.480, 2.0 Coronavirus [PCR]: Not detected Telemetry strip personally reviewed by me: Sinus rhythm 2-D echocardiogram: EF 40-45% mild mitral and tricuspid regurgitation. Assessment and plan: -Monomorphic ventricular tachycardia. Received IV amiodarone. Cardiac cath did not show any disease. Awaiting LifeVest. -Acute non-Q wave myocardial infarction from hemodynamic mismatch precipitated by ventricular tachycardia. Cardiac cath: Normal coronaries -Paroxysmal atrial flutter, currently sinus rhythm Telemetry. Lopressor 25 mg by mouth twice a day -Obesity BMI 35.6 Weight loss measures and follow with PCP -Acute on chronic nonischemic cardiomyopathy EF systolic dysfunction 40-45% Demadex 40 mg daily -IV heparin monitoring: discontinued Follow PTT Amiodarone discontinued. Lopressor increased to 25 mg twice a day. Had his AICD checked today. Showed V. tach. LifeVest ordered. Patient seen by Dr. Deandre Mathis from electrophysiology.
[2021-10-12] MEDS: AMIODARONE 200 MG TAB PO SCH (20:14)
[2021-10-13 05:43] VITALS: RESP 18
[2021-10-13] MEDS: TORSEMIDE 20 MG TAB PO SCH (09:30)
[2021-10-13] MEDS: METOPROLOL TARTRATE 25 MG TAB PO SCH (09:30)
[2021-10-13] MEDS: ASPIRIN 81 MG PO SCH (09:30)
[2021-10-13 09:56] VITALS: TEMP 97.6
--- NOTE | 2021-10-13 12:02 | P.PN ---
Progress Note - Text Progress Note Date: 10/13/21 55-year-old gentleman with history of bradycardia status post permanent pacemaker PVCs presented to hospital with ventricular tachycardia for which she was defibrillated he has been evaluated with an it application architect who has reviewed all the data from the pacemaker and feels that the patient actually had a ventricular tachycardia as opposed to having in SVT with aberrancy Patient currently has a LifeVest on. He underwent cardiac catheterization that did not reveal significant obstructive CAD. We started him on amiodarone 200 twice a day going to discharge him home on the. His ventricular tachycardia may be related to the recent viral infection and viral myocarditis. I'm going to re peat an echo on him over the next several months and patient may need to have a repeat cardiac MRI and at some stage of the LV and the RV does not improve we may have to do an AICD on him On exam today is comfortable at rest vital signs are stable there is jugular venous distention carotid upstroke is normal there is no bruit chest exam is currently bilaterally heart exam reveals first and second heart sounds no gallop no murmur no rub abdomen is soft nontender exams extremities did not reveal any edema per for pulses are felt Assessment and plan: Ventricular tachycardia Status post permanent pacemaker I will treat the patient with amiodarone LifeVest Discharge him home today
[2021-10-13] MEDS: AMIODARONE 200 MG TAB PO SCH (12:36)
[2021-10-13 13:11] VITALS: BP 111/64; PULSE 70
--- NOTE | 2021-10-13 20:47 | P.DS ---
Providers Date of admission: 10/11/21 00:13 Expected date of discharge: 10/13/21 Attending physician: Pawan Banuelos Consults: 10/11/21 00:13 Consult Physician Urgent Consulting Provider: Rocío Moss Consult Reason/Comments: VT Do you want consulting provider notified?: Yes Primary care physician: [facility] Course: Chief Complaint: Chest pain This is a pleasant 55-year-old patient who follows with Dr. Daley. Has an extensive cardiac history. Chronic stable medical conditions include atrial flutter with ablation that was unsuccessful, then in [place], congestive heart failure, cardiac catheterization in 1999 that was negative, permanent pacemaker for bradycardia. About 3 weeks ago patient started becoming short of breath and felt more bloated. Went to his family doctor was started on Lasix. Patient did loose weight. Echocardiogram showed EF around 45%. Yesterday had gone to [facility] and coming back he became dizzy the chest discomfort. Bradycardia normal left arm. Lasted for quite a while. Was with activity. Some dizziness. Patient presented to [facility] with ventricular tachycardia. Patient subsequently was transferred here. Patient's troponins were positive. Patient is having sustained monomorphic V. tach he was defibrillated. Was put on IV amiodarone and IV heparin. Earlier today patient was taken for a cardiac catheterization by Dr. Lacy and did not show any significant disease. Post cath patient is on IV amiodarone. October 12: Patient had his pacemaker checked today. It did show V. tach. IV amiodarone was earlier discontinued. LifeVest has been ordered by Dr. Deandre Mathis. Patient feels better. Eating well. Up in a chair. October 13: Received LifeVest. Being discharge in amiodarone per cardiology. Lopressor. Bumex. Consultation: Cardiology associates and Dr. Deandre Mathis from EP service Past medical history to include: Atrial flutter with ablation unsuccessful, permanent pacemaker for bradycardia, congestive heart failure from viral infection. Social history: Patient does farming and also sells seeds. . No smoking. Alcohol occasionally. Family history: Hypertension, CAD Physical examination: VITAL SIGNS: 70, 18, 111/64, 95% room air GENERAL: Propped up in bed, comfortable EYES: Pupils equal. Conjunctiva normal. HEENT: External appearance of nose and ears normal, oral cavity grossly normal. NECK: JVD not raised; masses not palpable. HEART: First and second heart sounds are normal; no edema. LUNGS: Respiratory rate normal; clear to auscultation. ABDOMEN: Soft, nontender, liver spleen not palpable, no masses palpable. PSYCH: Alert and oriented x3; mood and affect normal. MUSCULOSKELETAL:No Clubbing/cyanosis;muscles-grossly intact INVESTIGATIONS, reviewed in the clinical context: LDL 108 White count 6.6 hemoglobin 14.8 platelets 219 potassium 3.9 creatinine 1.03 Chest x-ray film personally reviewed by me-coronary megaly. Lung can clear. Pacemaker Troponin I 1.480, 2.0 Coronavirus [PCR]: Not detected Telemetry strip personally reviewed by me: Sinus rhythm 2-D echocardiogram: EF 40-45% mild mitral and tricuspid regurgitation. Assessment and plan: -Monomorphic ventricular tachycardia. Confirmed on pacemaker check Received IV amiodarone. Cardiac cath did not show any disease. Awaiting LifeVest. -Acute non-Q wave myocardial infarction from hemodynamic mismatch precipitated by ventricular tachycardia. Cardiac cath: Normal coronaries -Pacemaker -Paroxysmal atrial flutter, currently sinus rhythm Telemetry. Lopressor 25 mg by mouth twice a day -Obesity BMI 35.6 Weight loss measures and follow with PCP -Acute on chronic nonischemic cardiomyopathy EF systolic dysfunction 40-45% Demadex 40 mg daily. LifeVest. -IV heparin monitoring: discontinued Follow PTT Disposition: Home Plan - Discharge Summary Discharge Rx Participant: No New Discharge Prescriptions: New Amiodarone [Cordarone] 200 mg PO BID #60 tab Metoprolol Tartrate [Lopressor] 25 mg PO BID 30 Days #60 tab Continue Torsemide [Demadex] 40 mg PO DAILY Discontinued Metoprolol Tartrate [Lopressor] 12.5 mg PO BID Discharge Medication List Torsemide [Demadex] 40 mg PO DAILY 10/11/21 [History] Metoprolol Tartrate [Lopressor] 25 mg PO BID 30 Days #60 tab 10/12/21 [Rx] Amiodarone [Cordarone] 200 mg PO BID #60 tab 10/13/21 [Rx] Follow up Appointment(s)/Referral(s): Ellie Gonzales NPC [REFERRING] - 1-2 days (Please call to set up a follow- up appointment) Roberto Pinon MD [STAFF PHYSICIAN] - 1 Week (Please call office to make a follow-up appointment) Discharge Disposition: HOME SELF-CARE
--- NOTE | 2021-10-16 14:00 | CDI ---
Documentation Clarification Form Date: 10/16/21 From: Nancy Leon Admit Date: 10/11/2021 12:13:00 AM Patient Name: Ghassan Ortiz Visit Number: [id number] Discharge Date: 10/13/2021 05:04:00 PM ATTENTION: The Clinical Documentation Specialists (CDI) and [facility] Coding Staff appreciate your assistance in clarifying documentation. Please respond to the clarification below the line at the bottom and electronically sign. The CDI & [facility] Coding staff will review the response and follow-up if needed. Please note: Queries are made part of the Legal Health Record. If you have any questions, please contact the author of this message via ITS. Dr. Roberto Pinon, Atrial Flutter is documented in the ED Note, H&P PNs and DS. Additional clarification regarding the type of Atrial Flutter is requested. History/Risk factors: V tach, NSTEMI, non-ischemic cardiomyopathy, chronic systolic CHF, SSS, SVT, s/p pacemaker Clinical Indicators: Chronic stable medical conditions include atrial flutter with ablation that was unsuccessful. EKG/telemetry: sinus rhythm Treatment: Lopressor & Demadex at home Please clarify the type of Atrial Flutter, if known: [ ] Typical/Type I [ ] Atypical/Type II [ ] Other, please specify [ ] Unable to determine i have not documented aflutter please don"t waste time _with queries not pertinenet to me MTDD
--- NOTE | 2021-10-25 12:52 | CDI ---
Documentation Clarification Form Date: 10/25/21 From: Nancy Leon Admit Date: 10/11/2021 12:13:00 AM Patient Name: Ghassan Ortiz Visit Number: [id number] Discharge Date: 10/13/2021 05:04:00 PM ATTENTION: The Clinical Documentation Specialists (CDI) and [facility] Coding Staff appreciate your assistance in clarifying documentation. Please respond to the clarification below the line at the bottom and electronically sign. The CDI & [facility] Coding staff will review the response and follow-up if needed. Please note: Queries are made part of the Legal Health Record. If you have any questions, please contact the author of this message via ITS. Dr. Pawan Banuelos, Atrial Flutter is documented in the ED Note, H&P PNs and DS. Additional clarification regarding the type of Atrial Flutter is requested. History/Risk factors: V tach, NSTEMI, nonischemic cardiomyopathy, chronic systolic CHF, SSS, SVT, s/p pacemaker Clinical Indicators: Chronic stable medical conditions include atrial flutter with ablation that was unsuccessful. EKG/telemetry: sinus rhythm Treatment: Lopressor & Demadex at home Please clarify the type of Atrial Flutter, if known: [ ] Typical/Type I [ ] Atypical/Type II [ ] Other, please specify [ ] Unable to determine MTDD
== END 2021-10-13 17:04 | disposition home or self-care (01) | DRG 281 ==
LOC: EC 23:26 → 3SCARD 10-11 00:13
PROVIDERS: ADMIT Hospitalist; ATTEND Hospitalist
PROC: B2111ZZ Fluoroscopy of Multiple Coronary Arteries using Low Osmolar Contrast (ICD-10-PCS; 2021-10-11)
PROC: 4A023N7 Measurement of Cardiac Sampling and Pressure, Left Heart, Percutaneous Approach (ICD-10-PCS; principal; 2021-10-11 14:50)
DX: I47.2 Ventricular tachycardia (principal); I21.A1 Myocardial infarction type 2; I42.8 Other cardiomyopathies; I50.22 Chronic systolic (congestive) heart failure; I49.5 Sick sinus syndrome; I48.92 Unspecified atrial flutter; I47.1 Supraventricular tachycardia; Z20.822 Contact with and (suspected) exposure to COVID-19; B34.9 Viral infection, unspecified; I44.7 Left bundle-branch block, unspecified; I08.1 Rheumatic disorders of both mitral and tricuspid valves; E66.9 Obesity, unspecified; Z68.36 Body mass index [BMI] 36.0-36.9, adult; Z79.899 Other long term (current) drug therapy; Z86.19 Personal history of other infectious and parasitic diseases; Z95.0 Presence of cardiac pacemaker; Z88.0 Allergy status to penicillin; Z82.49 Family history of ischemic heart disease and other diseases of the circulatory system
CPT/HCPCS: 71046; 80048; 80061; 84484; 85027; 85730; 87635; 93005; 93306; 93458; 96374; 99285

== ENCOUNTER → 2021-12-07 | Outpatient (CLI) | payer OTHER ==
[2021-12-07 18:15] LABS: HCT 43.9 % (39.6-50.0); HGB 14.2 g/dL (13.0-17.0); MCH 30.1 pg (27.0-32.0); MCHC 32.3 g/dL (32.0-37.0); Mean Platelet Volume 10.5 fL (9.5-12.2); NRBC Per 100 WBC 0 /100 WBCS (0.0-0.0); Platelet Count 204 X 10*3/uL (140-440); RBC 4.72 X 10*6/uL (4.40-5.60); RDW 14.1 % (11.5-14.5); WBC 4.25 X 10*3/uL (4.50-10.00)
[2021-12-07 18:41] LABS: Anion Gap 14.7 mmol/L (10.00-18.00); Carbon Dioxide 26.3 mmol/L (20.0-27.5); Potassium 4.1 mmol/L (3.5-5.5)
== END | disposition home or self-care (01) ==
LOC: LABWHC1 11:28
PROVIDERS: ATTEND Internal Medicine Cardiovascular Disease
DX: I50.22 Chronic systolic (congestive) heart failure (principal)
CPT/HCPCS: 36415; 80051; 83880; 84443; 85027

== ENCOUNTER 2022-06-08 02:21 | Inpatient (IN) | payer OTHER ==
[2022-06-08] MEDS ORDERED: SODIUM CHLORIDE 0.9% 1,000 ML IV STA (02:27)
--- NOTE | 2022-06-08 02:27 | ED ---
Weakness HPI - General Chief complaint: Chest Pain Stated complaint: Palpitations Time Seen by Provider: 06/08/22 02:26 Source: patient, EMS, RN notes reviewed, old records reviewed Mode of arrival: EMS Limitations: no limitations - History of Present Illness Initial comments: This is a 56-year-old male coming in with history of tachycardia or SVT V. tach coming in for evaluation of chest.. Patient's chest pain is now resolved upon arrival been taking all medications as recommended. No fevers cough or congestion of travel history or sick contacts no other complaints MD Complaint: generalized weakness, lack of energy, difficulty walking -: hour(s) Location: generalized Severity: moderate Severity scale (1-10): 5 Quality: tingling, numbness, aching Consistency: constant Improves with: none Worsens with: none Context: recent illness, history of similar Associated Symptoms: nausea/vomiting, shortness of breath, syncope - Related Data Home Medications Medication Instructions Recorded Confirmed Amiodarone [Cordarone] 200 mg PO DAILY 01/01/22 01/01/22 Losartan [Cozaar] 25 mg PO DAILY 01/01/22 01/01/22 Metoprolol Tartrate 25 mg PO BID 01/01/22 01/01/22 Torsemide [Demadex] 40 mg PO DAILY 01/01/22 01/02/22 Previous Rx's Medication Instructions Recorded Metoprolol Succinate (ER) [Toprol 50 mg PO DAILY #90 tab 01/02/22 XL] Allergies Allergy/AdvReac Type Severity Reaction Status Date / Time No Known Allergies Allergy Verified 12/28/21 09:30 Review of Systems ROS Statement: Those systems with pertinent positive or pertinent negative responses have been documented in the HPI. ROS Other: All systems not noted in ROS Statement are negative. Past Medical History Past Medical History: Atrial Flutter, Heart Failure Additional Past Medical History / Comment(s): PVC's. Cardiomyopathy. Congestive heart failure. Permanent pacemaker. 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 Past Anesthesia/Blood Transfusion Reactions: No Reported Reaction Type of Cardiac Device: Permanent Pacemaker Device Placement Date:: 2019 Smoking Status: Never smoker - Past Family History Father Family Medical History: Coronary Artery Disease (CAD), Hypertension Additional Family Medical History / Comment(s): Father had coronary stents/CABG Mother Family Medical History: Congestive Heart Failure (CHF) General Exam Limitations: no limitations General appearance: alert, in no apparent distress, anxious Head exam: Present: atraumatic, normocephalic, normal inspection Eye exam: Present: normal appearance, PERRL, EOMI. Absent: scleral icterus, conjunctival injection, periorbital swelling ENT exam: Present: normal exam, mucous membranes moist Neck exam: Present: normal inspection. Absent: tenderness, meningismus, lymphadenopathy Respiratory exam: Present: normal lung sounds bilaterally. Absent: respiratory distress, wheezes, rales, rhonchi, stridor Cardiovascular Exam: Present: regular rate, normal rhythm, normal heart sounds. Absent: systolic murmur, diastolic murmur, rubs, gallop, clicks GI/Abdominal exam: Present: soft, normal bowel sounds. Absent: distended, ten derness, guarding, rebound, rigid Extremities exam: Present: normal inspection, full ROM, normal capillary refill. Absent: tenderness, pedal edema, joint swelling, calf tenderness Back exam: Present: normal inspection Neurological exam: Present: alert, oriented X3, CN II-XII intact Psychiatric exam: Present: normal affect, normal mood Skin exam: Present: warm, dry, intact, normal color. Absent: rash Course Vital Signs 06/08/22 02:22 Temperature 97.9 F Pulse Rate 68 Respiratory 18 Rate Blood Pressure 126/98 O2 Sat by Pulse 95 Oximetry - Reevaluation(s) Reevaluation #1: 06/08/22 04:29 Medical record is reviewed Reevaluation #2: 06/08/22 04:29 Patient remains in a paced rhythm throughout entire ER stay 06/08/22 04:29 Patient will be admitted for pacemaker interrogation Reevaluation #3: 06/08/22 04:29 Patient informed results questions answered - Consultations Consultation #1: Spoke with Dr. Banuelos who agrees to admit this patient EKG Findings - EKG Comments: EKG Findings:: EKG shows paced 74 MN 192 QRS 101 QTC 410 Medical Decision Making - Medical Decision Making 56 male DF for evaluation patient coming in for chest pain tachycardia non-ST elevated [place] under paced rhythm. Patient has prior heart catheterization showing normal coronary arteries. Patient will be admitted for cardiology evaluation management as well as trending of troponin - Lab Data Result diagrams: 06/08/22 02:32 06/08/22 02:32 Lab Results 06/08/22 06/08/22 06/08/22 Range/Units 02:32 02:32 02:32 WBC 4.2 (3.8-10.6) k/uL RBC 4.71 (4.30-5.90) m/uL Hgb 14.9 (13.0-17.5) gm/dL Hct 45.1 (39.0-53.0) % MCV 95.8 (80.0-100.0) fL MCH 31.6 (25.0-35.0) pg MCHC 33.0 (31.0-37.0) g/dL RDW 15.4 (11.5-15.5) % Plt Count 159 (150-450) k/uL MPV 7.7 Neutrophils % 71 % Lymphocytes % 14 % Monocytes % 5 % Eosinophils % 8 % Basophils % 1 % Neutrophils # 3.0 (1.3-7.7) k/uL Lymphocytes # 0.6 L (1.0-4.8) k/uL Monocytes # 0.2 (0-1.0) k/uL Eosinophils # 0.3 (0-0.7) k/uL Basophils # 0.1 (0-0.2) k/uL PT 12.7 H (9.0-12.0) sec INR 1.2 H (<1.2) APTT 24.8 (22.0-30.0) sec Sodium 140 (137-145) mmol/L Potassium 3.6 (3.5-5.1) mmol/L Chloride 100 (98-107) mmol/L Carbon Dioxide 27 (22-30) mmol/L Anion Gap 13 mmol/L BUN 16 (9-20) mg/dL Creatinine 1.21 (0.66-1.25) mg/dL Est GFR (CKD-EPI)AfAm 78 (>60 ml/min/1.73 sqM) Est GFR (CKD-EPI)NonAf 67 (>60 ml/min/1.73 sqM) Glucose 115 H (74-99) mg/dL Calcium 9.3 (8.4-10.2) mg/dL Phosphorus 4.6 H (2.5-4.5) mg/dL Magnesium 1.8 (1.6-2.3) mg/dL Total Bilirubin 1.5 H (0.2-1.3) mg/dL AST 29 (17-59) U/L ALT 16 (4-49) U/L Alkaline Phosphatase 83 (38-126) U/L Troponin I (0.000-0.034) ng/mL NT-Pro-B Natriuret Pep pg/mL Total Protein 6.6 (6.3-8.2) g/dL Albumin 3.8 (3.5-5.0) g/dL 06/08/22 06/08/22 Range/Units 02:32 02:32 WBC (3.8-10.6) k/uL RBC (4.30-5.90) m/uL Hgb (13.0-17.5) gm/dL Hct (39.0-53.0) % MCV (80.0-100.0) fL MCH (25.0-35.0) pg MCHC (31.0-37.0) g/dL RDW (11.5-15.5) % Plt Count (150-450) k/uL MPV Neutrophils % % Lymphocytes % % Monocytes % % Eosinophils % % Basophils % % Neutrophils # (1.3-7.7) k/uL Lymphocytes # (1.0-4.8) k/uL Monocytes # (0-1.0) k/uL Eosinophils # (0-0.7) k/uL Basophils # (0-0.2) k/uL PT (9.0-12.0) sec INR (<1.2) APTT (22.0-30.0) sec Sodium (137-145) mmol/L Potassium (3.5-5.1) mmol/L Chloride (98-107) mmol/L Carbon Dioxide (22-30) mmol/L Anion Gap mmol/L BUN (9-20) mg/dL Creatinine (0.66-1.25) mg/dL Est GFR (CKD-EPI)AfAm (>60 ml/min/1.73 sqM) Est GFR (CKD-EPI)NonAf (>60 ml/min/1.73 sqM) Glucose (74-99) mg/dL Calcium (8.4-10.2) mg/dL Phosphorus (2.5-4.5) mg/dL Magnesium (1.6-2.3) mg/dL Total Bilirubin (0.2-1.3) mg/dL AST (17-59) U/L ALT (4-49) U/L Alkaline Phosphatase (38-126) U/L Troponin I 0.115 H* (0.000-0.034) ng/mL NT-Pro-B Natriuret Pep 2880 pg/mL Total Protein (6.3-8.2) g/dL Albumin (3.5-5.0) g/dL Critical Care Time Critical Care Time: Yes Total Critical Care Time: 31 Disposition Clinical Impression: Atypical chest pain, Tachycardia, Ventricular premature beats, Panic attack, Acute non-ST elevation myocardial infarction (NSTEMI) Disposition: ADMITTED IP TO THIS HOSP Condition: Undetermined Is patient prescribed a controlled substance at d/c from ED?: No Time of Disposition: 04:30
[2022-06-08 02:48] LABS: Basophils # (A) 0.1 k/uL (0-0.2); Basophils % (A) 1 %; Eosinophils # (A) 0.3 k/uL (0-0.7); Eosinophils % (A) 8 %; HCT 45.1 % (39.0-53.0); HGB 14.9 gm/dL (13.0-17.5); Lymphocytes # (A) 0.6 k/uL (1.0-4.8); Lymphocytes % (A) 14 %; MCH 31.6 pg (25.0-35.0); MCV 95.8 fL (80.0-100.0); Mean Platelet Volume 7.7; Monocytes # (A) 0.2 k/uL (0-1.0); Monocytes % (A) 5 %; Neutrophils % (A) 71 %; Platelet Count 159 k/uL (150-450); RBC 4.71 m/uL (4.30-5.90); RDW 15.4 % (11.5-15.5); WBC 4.2 k/uL (3.8-10.6)
[2022-06-08 02:59] LABS: Albumin 3.8 g/dL (3.5-5.0); Calcium 9.3 mg/dL (8.4-10.2); Magnesium 1.8 mg/dL (1.6-2.3); Phosphorus 4.6 mg/dL (2.5-4.5); Potassium 3.6 mmol/L (3.5-5.1); Total Bilirubin 1.5 mg/dL (0.2-1.3); Total Protein 6.6 g/dL (6.3-8.2)
[2022-06-08 03:04] LABS: INR 1.2 (<1.2); Partial Thromboplastin Time 24.8 sec (22.0-30.0); Prothrombin Time 12.7 sec (9.0-12.0)
[2022-06-08] MEDS ORDERED: NITROGLYCERIN SL TABS 0.4 MG TAB SUBLINGUAL PRN (04:20)
[2022-06-08] MEDS ORDERED: ASPIRIN 81 MG PO STA ×2 (04:20→05:16)
[2022-06-08] MEDS ORDERED: MORPHINE SULFATE 4 MG/ML SYRINGE IV PRN (04:20)
[2022-06-08] MEDS: ATORVASTATIN 80 MG TAB PO SCH (08:49)
--- NOTE | 2022-06-08 09:45 | P.CRDCN ---
History of Present Illness Consult date: 06/08/22 Chief complaint: Chest discomfort and shortness of breath History of present illness: This is a 56-year-old gentleman who sees Dr. Pinon regularly with a past medical history significant for nonischemic cardiomyopathy and also history of sustained ventricular tachycardia status post BiV ICD as well as hypertension and dyslipidemia and obesity presented to the hospital after an episode last night. The patient was in his usual state of health he was sleeping in bed when he woke up complaining of chest discomfort. He tried to walk out of the bed when suddenly he felt that he was about to lose his consciousness. He felt clammy as well. He didn't have chest discomfort. His was at bedside. For that reason he decided to come to the emergency department. Before that episode he was not feeling well. Within the last several months he gained about 20 pounds. He stated that he has been compliant with his medication and he is on diuretic as an outpatient also he was compliant with his diet. He developed also a progressive shortness of breath with exertion within the last several months. He also developed lower edema. During this admission he underwent a workup including an AICD interrogation and that revealed episode of ventricular tachycardia treated. Otherwise the device interrogation showed that the patient was having biventricular pacing in more than 80% of the time. Also device interrogation showed possible fluid overload. When the patient was seen and examined this morning he definitely looks in failure. He does have bilateral lower extremities edema and abdominal distention and he has diminished breathing sounds bilaterally. No chest x-ray ordered. NT proBNP came in to be around 3000 but the patient is somewhat overweight. He underwent an EKG which showed sinus rhythm with ventricular paced rhythm. He underwent a workup for the cardiomyopathy earlier this year including a heart catheterization showed normal coronaries an echo which showed an EF between 40-45%. Past Medical History Past Medical History: Atrial Flutter, Heart Failure Additional Past Medical History / Comment(s): PVC's. Cardiomyopathy. Congestive heart failure. Permanent pacemaker. 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 Past Anesthesia/Blood Transfusion Reactions: No Reported Reaction Type of Cardiac Device: Permanent Pacemaker Device Placement Date:: 2019 Smoking Status: Never smoker - Past Family History Father Family Medical History: Coronary Artery Disease (CAD), Hypertension Additional Family Medical History / Comment(s): Father had coronary stents/CABG Mother Family Medical History: Congestive Heart Failure (CHF) Medications and Allergies Home Medications Medication Instructions Recorded Confirmed Type Amiodarone [Cordarone] 200 mg PO DAILY 01/01/22 01/01/22 History Losartan [Cozaar] 25 mg PO DAILY 01/01/22 01/01/22 History Metoprolol Tartrate 25 mg PO BID 01/01/22 01/01/22 History Torsemide [Demadex] 40 mg PO DAILY 01/01/22 01/02/22 History Metoprolol Succinate (ER) [Toprol 50 mg PO DAILY #90 tab 01/02/22 Rx XL] Allergies Allergy/AdvReac Type Severity Reaction Status Date / Time No Known Allergies Allergy Verified 12/28/21 09:30 Physical Exam Vitals: Vital Signs Temp Pulse Resp BP Pulse Ox 06/08/22 07:26 56 L 12 96/69 95 06/08/22 06:32 55 L 06/08/22 05:30 117 H 11 L 112/72 06/08/22 05:20 120 H 8 L 112/72 06/08/22 05:10 129 H 8 L 112/72 06/08/22 05:00 45 L 11 L 100/70 06/08/22 04:56 46 L 18 100/71 100 06/08/22 04:50 56 L 12 88/51 06/08/22 04:40 51 L 15 88/51 06/08/22 04:30 58 L 14 88/51 06/08/22 04:20 59 L 14 88/51 06/08/22 04:10 52 L 11 L 88/51 06/08/22 04:00 19 126/98 06/08/22 03:50 50 L 12 126/98 06/08/22 03:40 57 L 10 L 126/98 06/08/22 03:30 52 L 7 L 126/98 96 06/08/22 03:20 9 L 126/98 94 L 06/08/22 03:10 53 L 21 126/98 94 L 06/08/22 03:00 56 L 10 L 126/98 95 06/08/22 02:50 59 L 12 126/98 94 L 06/08/22 02:44 54 L 11 L 126/98 94 L 06/08/22 02:22 97.9 F 68 18 126/98 95 Intake and Output 06/07/22 06/08/22 06/08/22 22:59 06:59 14:59 Other: Weight 127.006 kg - Constitutional General appearance: no acute distress - Respiratory Respiratory: bilateral: diminished - Cardiovascular Rhythm: regular Heart sounds: normal: S1, S2 Results 06/08/22 02:32 06/08/22 02:32 Cardiac Enzymes 06/08/22 06/08/22 06/08/22 Range/Units 02:32 02:32 05:50 AST 29 (17-59) U/L Troponin I 0.115 H* 0.234 H* (0.000-0.034) ng/mL Coagulation 06/08/22 Range/Units 02:32 PT 12.7 H (9.0-12.0) sec APTT 24.8 (22.0-30.0) sec CBC 06/08/22 Range/Units 02:32 WBC 4.2 (3.8-10.6) k/uL RBC 4.71 (4.30-5.90) m/uL Hgb 14.9 (13.0-17.5) gm/dL Hct 45.1 (39.0-53.0) % Plt Count 159 (150-450) k/uL Comprehensive Metabolic Panel 06/08/22 Range/Units 02:32 Sodium 140 (137-145) mmol/L Potassium 3.6 (3.5-5.1) mmol/L Chloride 100 (98-107) mmol/L Carbon Dioxide 27 (22-30) mmol/L BUN 16 (9-20) mg/dL Creatinine 1.21 (0.66-1.25) mg/dL Glucose 115 H (74-99) mg/dL Calcium 9.3 (8.4-10.2) mg/dL AST 29 (17-59) U/L ALT 16 (4-49) U/L Alkaline Phosphatase 83 (38-126) U/L Total Protein 6.6 (6.3-8.2) g/dL Albumin 3.8 (3.5-5.0) g/dL Current Medications Generic Name Dose Route Start Last Admin Trade Name Freq PRN Reason Stop Dose Admin Aspirin 325 mg 06/09/22 09:00 Aspirin 325 Mg Tab PO DAILY MARCELINO Atorvastatin Calcium 80 mg 06/08/22 09:00 06/08/22 08:49 Atorvastatin 80 Mg Tab PO Not Given DAILY MARCELINO Sodium Chloride 1,000 mls @ 20 mls/hr 06/08/22 02:27 06/08/22 02:56 Saline 0.9% IV 06/09/22 02:26 20 mls/hr .Q24H STA Administration Morphine Sulfate 4 mg 06/08/22 04:20 Morphine Sulfate 4 Mg/Ml Syringe IV Q4HR PRN Chest Pain Nitroglycerin 0.4 mg 06/08/22 04:20 Nitroglycerin Sl Tabs 0.4 Mg Tab SUBLINGUAL Q5M PRN Chest Pain Intake and Output 06/07/22 06/08/22 06/08/22 22:59 06:59 14:59 Other: Weight 127.006 kg 06/08/22 02:32 06/08/22 02:32 Assessment and Plan Assessment: Assessment #1 heart failure exacerbation secondary to heart failure with ejection fraction. The patient does have evidence of right and left failure #2 ventricular tachycardia treated with ATP #3 nonischemic cardiomyopathy status post AICD #4 hypertension #5 dyslipidemia #6 obesity Plan #1 hold any beta teofilo at this point in view of the bradycardia as well as a heart failure exacerbation #2 start the patient on IV diuretics with Lasix 40 mg IV twice a day #3 monitor the kidney function and electrolytes #4 obtain an echocardiogram to assess the current ejection fraction #5 restart the patient back on losartan at 25 mg by mouth daily #6 add Aldactone to the current medical regimen in the light of hypokalemia and also cardiomyopathy
--- NOTE | 2022-06-08 11:15 | XR ---
EXAMINATION TYPE: XR chest 2V DATE OF EXAM: 06/08/2022 COMPARISON: 01/01/2022 HISTORY: 56-year-old male PPM check TECHNIQUE: PA and lateral views FINDINGS: Left anterior chest wall AICD generator with right atrial, right ventricular, and coronary sinus lead s. Heart mildly enlarged. Vasculature within normal limits. No consolidation or pleural effusion. No appreciable pneumothorax. There may be a trace effusion on one side on the lateral view. IMPRESSION: 1. Mild cardiomegaly is similar. 2. A 3-lead AICD generator along the left side of the chest. 3. There appears to be a trace effusion on the lateral view. Otherwise, no acute process seen.
[2022-06-08] MEDS: allopurinoL 100 MG TAB PO SCH ×2 (20:06→20:12)
[2022-06-08] MEDS: FUROSEMIDE 10 MG/ML 4 ML VIAL IV SCH (20:06)
--- NOTE | 2022-06-08 20:08 | P.HPIM ---
History of Present Illness H&P Date: 06/08/22 Chief Complaint: Chest tightness This is a pleasant 56-year-old patient who follows with Dr. Daley. Has an extensive cardiac history. Chronic stable medical conditions include atrial flutter with ablation that was unsuccessful, then in [place], congestive heart failure, cardiac catheterization in 1999 that was negative, permanent pacemaker for bradycardia. Also has had episodes of V. tach. Last night was sleeping patient developed chest tightness-workup. When he trie d to get up he He actually fell off the bed unable to get up. asked him to keep lying down. To EMS came.. He had turned purple. EMS was called out. Cardiac catheterization earlier this year showed normal coronaries. Review of systems: GEN.: Tired EYES: None HEENT: None NECK: None RESPIRATORY: None CARDIOVASCULAR: As above GASTROINTESTINAL: None GENITOURINARY: None MUSCULOSKELETAL: None LYMPHATICS: None HEMATOLOGICAL: None PSYCHIATRY: None NEUROLOGICAL: None Past medical history to include: Atrial flutter with ablation unsuccessful, permanent pacemaker for bradycardia, congestive heart failure from viral infection. V. tach Social history: Patient does farming and also sells seeds. . No smoking. Alcohol occasionally. Family history: Hypertension, CAD Physical examination: VITAL SIGNS: 96.4, 52, 16, 107/73, 94% room air GENERAL: BMI 36.9, reclining but awake, tired EYES: Pupils equal. Conjunctiva normal. HEENT: External appearance of nose and ears normal, oral cavity grossly normal. NECK: JVD not raised; masses not palpable. HEART: First and second heart sounds are normal; no edema. LUNGS: Respiratory rate normal; clear to auscultation. ABDOMEN: Soft, nontender, liver spleen not palpable, no masses palpable. PSYCH: Alert and oriented x3; mood and affect normal. MUSCULOSKELETAL:No Clubbing/cyanosis;muscles-grossly intact Neurological: Gait was grossly intact. Pulses grossly intact. INVESTIGATIONS, reviewed in the clinical context: White count 4.2 hemoglobin 14.9 platelets 159 potassium 3.6 creatinine 1.21 Troponin I 0.115, 0.234, 0.211 EKG tracing personally reviewed by me-intraventricular block, sinus tachycardia, Chest x-ray film personally reviewed by me-cardiomegaly Previous testing 2-D echocardiogram [September 2021]: EF 40-45% mild mitral and tricuspid regurgitation. Assessment and plan: -Acute on chronic nonischemic cardiomyopathy EF systolic dysfunction 40-45% Lasix 40 mg IV twice a day.. -History of V. tach. -Cardiac catheterization: Normal coronaries -Pacemaker /AICD -Paroxysmal atrial flutter, currently sinus rhythm Telemetry. Lopressor 25 mg by mouth twice a day -Obesity BMI 36.9 Weight loss measures and follow with PCP -Troponin leak from CHF. No ACS. Patient is seen by cardiology. Started on IV Lasix 40 mg twice a day. We'll started and is being added. She was Aldactone. Other medications continued. Discussed with patient. Activity as tolerated. Past Medical History Past Medical History: Atrial Flutter, Heart Failure Additional Past Medical History / Comment(s): PVC's. Cardiomyopathy. Congestive heart failure. Permanent pacemaker. 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 Past Anesthesia/Blood Transfusion Reactions: No Reported Reaction Type of Cardiac Device: Permanent Pacemaker Device Placement Date:: 2019 Smoking Status: Never smoker - Past Family History Father Family Medical History: Coronary Artery Disease (CAD), Hypertension Additional Family Medical History / Comment(s): Father had coronary stents/CABG Mother Family Medical History: Congestive Heart Failure (CHF) Medications and Allergies Home Medications Medication Instructions Recorded Confirmed Type Metoprolol Tartrate 25 mg PO BID 01/01/22 06/08/22 History Torsemide [Demadex] 20 mg PO DAILY 01/01/22 06/08/22 History Aspirin 162 mg PO ONCE PRN 06/08/22 06/08/22 History Furosemide [Lasix] 80 mg PO DAILY 06/08/22 06/08/22 History Potassium Gluconate [Potassium 99 mg PO DAILY 06/08/22 06/08/22 History Gluconate ER] allopurinoL [Zyloprim] 100 mg PO HS 06/08/22 06/08/22 History Allergies Allergy/AdvReac Type Severity Reaction Status Date / Time No Known Allergies Allergy Verified 12/28/21 09:30 Physical Exam Vitals: Vital Signs Temp Pulse Resp BP Pulse Ox 06/08/22 10:01 57 L 106/77 96 06/08/22 09:59 32 L 15 101/64 96 06/08/22 07:26 56 L 12 96/69 95 06/08/22 06:32 55 L 06/08/22 05:30 117 H 11 L 112/72 06/08/22 05:20 120 H 8 L 112/72 06/08/22 05:10 129 H 8 L 112/72 06/08/22 05:00 45 L 11 L 100/70 06/08/22 04:56 46 L 18 100/71 100 06/08/22 04:50 56 L 12 88/51 06/08/22 04:40 51 L 15 88/51 06/08/22 04:30 58 L 14 88/51 06/08/22 04:20 59 L 14 88/51 06/08/22 04:10 52 L 11 L 88/51 06/08/22 04:00 19 126/98 06/08/22 03:50 50 L 12 126/98 06/08/22 03:40 57 L 10 L 126/98 06/08/22 03:30 52 L 7 L 126/98 96 06/08/22 03:20 9 L 126/98 94 L 06/08/22 03:10 53 L 21 126/98 94 L 06/08/22 03:00 56 L 10 L 126/98 95 06/08/22 02:50 59 L 12 126/98 94 L 06/08/22 02:44 54 L 11 L 126/98 94 L 06/08/22 02:22 97.9 F 68 18 126/98 95 Intake and Output 06/07/22 06/08/22 06/08/22 22:59 06:59 14:59 Other: Weight 127.006 kg Results CBC & Chem 7: 06/08/22 02:32 06/08/22 02:32 Labs: Abnormal Lab Results - Last 24 Hours (Table) 06/08/22 06/08/22 06/08/22 Range/Units 02:32 02:32 02:32 Lymphocytes # 0.6 L (1.0-4.8) k/uL PT 12.7 H (9.0-12.0) sec INR 1.2 H (<1.2) Glucose 115 H (74-99) mg/dL Phosphorus 4.6 H (2.5-4.5) mg/dL Total Bilirubin 1.5 H (0.2-1.3) mg/dL Troponin I (0.000-0.034) ng/mL 06/08/22 06/08/22 06/08/22 Range/Units 02:32 05:50 09:00 Lymphocytes # (1.0-4.8) k/uL PT (9.0-12.0) sec INR (<1.2) Glucose (74-99) mg/dL Phosphorus (2.5-4.5) mg/dL Total Bilirubin (0.2-1.3) mg/dL Troponin I 0.115 H* 0.234 H* 0.211 H* (0.000-0.034) ng/mL
--- NOTE | 2022-06-09 06:44 | P.PN ---
Subjective Progress Note Date: 06/09/22 Principal diagnosis: Heart failure with reduced ejection fraction This is a 56-year-old gentleman who sees Dr. Pinon regularly with a past medical history significant for nonischemic cardiomyopathy and also history of sustained ventricular tachycardia status post BiV ICD as well as hypertension and dyslipidemia and obesity presented to the hospital after an episode last night. The patient was in his usual state of health he was sleeping in bed when he woke up complaining of chest discomfort. He tried to walk out of the bed when suddenly he felt that he was about to lose his consciousness. He felt clammy as well. He didn't have chest discomfort. His was at bedside. For that reason he decided to come to the emergency department. Before that episode he was not feeling well. Within the last several months he gained about 20 pounds. He stated that he has been compliant with his medication and he is on diuretic as an outpatient also he was compliant with his diet. He developed also a progressive shortness of breath with exertion within the last several months. He also developed lower edema. During this admission he underwent a workup including an AICD interrogation and that revealed episode of ventricular tachycardia treated. Otherwise the device interrogation showed that the patient was having biventricular pacing in more than 80% of the time. Also device interrogation showed possible fluid overload. When the patient was seen and examined this morning he definitely looks in failure. He does have bilateral lower extremities edema and abdominal distention and he has diminished breathing sounds bilaterally. No chest x-ray ordered. NT proBNP came in to be around 3000 but the patient is somewhat overweight. He underwent an EKG which showed sinus rhythm with ventricular paced rhythm. He underwent a workup for the cardiomyopathy earlier this year including a heart catheterization showed normal coronaries an echo which showed an EF between 40-45%. June [id number] The patient was seen this morning on the floor. He is feeling better. The shortness of breath is definitely better. The lower extremities edema is better as well. He was started on Lasix yesterday 40 mg IV twice a day and he has been diuresing extremely well. Hemodynamically he is stable was marginally low blood pressure. From the cardiac standpoint overview, I would recommend continue the current medical regimen including the current dose of Lasix IV and continue monitor the kidney function and electrolytes. And continue following up with the patient and follow-up echocardiogram which was performed yesterday. Objective - Vital Signs Vital signs: Vital Signs Temp 98.0 F 06/09/22 04:00 Pulse 64 06/09/22 04:00 Resp 19 06/09/22 04:00 BP 98/51 06/09/22 04:00 Pulse Ox 96 06/09/22 04:00 FiO2 Intake & Output 06/08/22 06/08/22 06/09/22 06:59 18:59 06:59 Intake Total 118 Output Total 925 Balance -807 Weight 127.006 kg 127.2 kg Intake: Oral 118 Output: Urine 925 Other: Voiding Method Urinal # Voids 2 - Constitutional General appearance: Present: no acute distress - Respiratory Respiratory: bilateral: diminished - Cardiovascular Rhythm: regular - Labs CBC & Chem 7: 06/08/22 02:32 06/08/22 02:32 Labs: Abnormal Lab Results - Last 24 Hours (Table) 06/08/22 06/08/22 Range/Units 05:50 09:00 Troponin I 0.234 H* 0.211 H* (0.000-0.034) ng/mL Assessment and Plan Assessment: Assessment #1 heart failure exacerbation secondary to heart failure with ejection fraction. The patient does have evidence of right and left failure #2 ventricular tachycardia treated with ATP #3 nonischemic cardiomyopathy status post AICD #4 hypertension #5 dyslipidemia #6 obesity Plan #1 continue holding the beta teofilo at this point in the light of bradycardia and heart failure exacerbation #2 continue the current dose of Lasix IV and Aldactone #3 continue monitor the kidney function and electrolytes #4 follow-up in the echocardiogram #5 follow-up on the patient
[2022-06-09 07:57] LABS: African American GFR (CKD) >90 (>60 ml/min/1.73 sqM); Anion Gap 9 mmol/L; Blood Urea Nitrogen 17 mg/dL (9-20); Calcium 8.7 mg/dL (8.4-10.2); Carbon Dioxide 30 mmol/L (22-30); Chloride 100 mmol/L (98-107); Glucose 91 mg/dL (74-99); Non-African American GFR(CKD) 79 (>60 ml/min/1.73 sqM); Potassium 3.7 mmol/L (3.5-5.1); Sodium 139 mmol/L (137-145)
[2022-06-09] MEDS: SPIRONOLACTONE 25 MG TAB PO SCH (07:59)
[2022-06-09] MEDS: ATORVASTATIN 80 MG TAB PO SCH ×2 (07:59→08:02)
[2022-06-09] MEDS: FUROSEMIDE 10 MG/ML 4 ML VIAL IV SCH ×2 (07:59→20:40)
[2022-06-09] MEDS ORDERED: ASPIRIN 325 MG TAB PO SCH (09:00)
--- NOTE | 2022-06-09 11:11 | CA ---
Transthoracic Echo Report Name: Ghassan Ortiz Age: 56 Gender: M : 1965 Exam Date: 06/08/2022 11:28 Exam Location: [facility] Ht (in): 73 Wt (lb): 280 Ordering Physician: Bill Ramires MD ([id number]) Attending/Referring Phys: Jacquard Loom Card Changer Renee Cabrera RDCS Procedure CPT: Indications: cm Cardiac Hx: Technical Quality: Technically difficult study Contrast 1: Lumason Total Dose (mL): 4 Contrast 2: Total Dose (mL): MEASUREMENTS (Male / Female) Normal Values 2D ECHO LV Diastolic Diameter PLAX 4.9 cm 4.2 - 5.9 / 3.9 - 5.3 cm LV Systolic Diameter PLAX 3.3 cm IVS Diastolic Thickness 1.9 cm 0.6 - 1.0 / 0.6 - 0.9 cm LVPW Diastolic Thickness 1.8 cm 0.6 - 1.0 / 0.6 - 0.9 cm LV Relative Wall Thickness 0.8 RV Internal Dim ED PLAX 3.7 cm M-MODE Aortic Root Diameter MM 3.6 cm LA Systolic Diameter MM 3.7 cm LA Ao Ratio MM 1.0 AV Cusp Separation MM 2.5 cm DOPPLER AV Peak Velocity 82.7 cm/s AV Peak Gradient 2.7 mmHg LVOT Peak Velocity 66.6 cm/s LVOT Peak Gradient 1.8 mmHg MV Area PHT 1.9 cm??? Mitral E Point Velocity 57.1 cm/s Mitral A Point Velocity 49.1 cm/s Mitral E to A Ratio 1.2 MV Deceleration Time 400.2 ms TR Peak Velocity 135.2 cm/s TR Peak Gradient 7.3 mmHg Right Ventricular Systolic Press 12.0 mmHg FINDINGS Left Ventricle Severely increased left ventricular wall thickness. Reduced global left ventricular systolic function. Left ventricular ejection fraction is estimated at 35-40 %. Right Ventricle Severe right ventricular dilatation. Reduced right ventricular global systolic function. Right Atrium Right atrium not well visualized. Left Atrium Normal left atrial size. Mitral Valve Structurally normal mitral valve. Mild to moderate mitral regurgitation. Aortic Valve No aortic valve stenosis or regurgitation. Tricuspid Valve [id number] tricuspid regurgitation. Pulmonic Valve Trace pulmonic regurgitation. Pericardium Small pericardial effusion. Aorta Normal size aortic root and proximal ascending aorta. CONCLUSIONS Impaired LV function was EF between 35-40% Mild to moderate mitral regurgitation Moderate to severe tricuspid regurgitation Previewed by: Dr. Bill Ramires MD (Electronically Signed) Final Date: 09 June 2022 11:10
--- NOTE | 2022-06-09 14:27 | P.PN ---
Progress Note - Text Progress Note Date: 06/09/22 Chief Complaint: Chest tightness This is a pleasant 56-year-old patient who follows with Dr. Daley. Has an extensive cardiac history. Chronic stable medical conditions include atrial flutter with ablation that was unsuccessful, then in [place], congestive heart failure, cardiac catheterization in 1999 that was negative, permanent pacemaker for bradycardia. Also has had episodes of V. tach. Last night was sleeping patient developed chest tightness-workup. When he tried to get up he He actually fell off the bed unable to get up. asked him to keep lying down. To EMS came.. He had turned purple. EMS was called out. Cardiac catheterization earlier this year showed normal coronaries. Patient has dyspeptic symptoms. Scheduled for EGD colonoscopy outpatient. Presented with acute CHF exacerbation. IV Lasix. June 09: On IV Lasix 40 mg every 12. Fluid restriction 1800 mL added. Up in a chair. Oral intake fair. Follow with cardiology. Edema present Active Medications Allopurinol (Allopurinol 100 Mg Tab) 100 mg PO HS [facility] Last Admin: 06/08/22 20:12 Dose: Not Given Atorvastatin Calcium (Atorvastatin 80 Mg Tab) 80 mg PO DAILY [facility] Last Admin: 06/09/22 08:02 Dose: Not Given Furosemide (Furosemide 10 Mg/Ml 4 Ml Vial) 40 mg IV Q12HR [facility] Last Admin: 06/09/22 07:59 Dose: 40 mg Morphine Sulfate (Morphine Sulfate 4 Mg/Ml Syringe) 4 mg IV Q4HR PRN PRN Reason: Chest Pain Nitroglycerin (Nitroglycerin Sl Tabs 0.4 Mg Tab) 0.4 mg SUBLINGUAL Q5M PRN PRN Reason: Chest Pain Spironolactone (Spironolactone 25 Mg Tab) 25 mg PO DAILY [facility] Last Admin: 06/09/22 07:59 Dose: 25 mg Past medical history to include: Atrial flutter with ablation unsuccessful, permanent pacemaker for bradycardia, congestive heart failure from viral infection. V. tach Social history: Patient does farming and also sells seeds. . No smoking. Alcohol occasionally. Family history: Hypertension, CAD Physical examination: VITAL SIGNS: 97.8, 57, 18, 104/58, 98% room air GENERAL: Sitting up in chair awake, bit tired EYES: Pupils equal. Conjunctiva normal. HEENT: External appearance of nose and ears normal, oral cavity grossly normal. NECK: JVD not raised; masses not palpable. HEART: First and second heart sounds are normal; edema present LUNGS: Respiratory rate normal; decreased breath sounds ABDOMEN: Soft, nontender, liver spleen not palpable, no masses palpable. PSYCH: Alert and oriented x3; mood and affect normal. INVESTIGATIONS, reviewed in the clinical context: June 09: Potassium 3.7 creatinine 1.06 White count 4.2 hemoglobin 14.9 platelets 159 potassium 3.6 creatinine 1.21 Troponin I 0.115, 0.234, 0.211 EKG tracing personally reviewed by me-intraventricular block, sinus tachycardia, Chest x-ray film personally reviewed by me-cardiomegaly Previous testing 2-D echocardiogram [September 2021]: EF 40-45% mild mitral and tricuspid regurgitation. Assessment and plan: -Acute on chronic nonischemic cardiomyopathy EF systolic dysfunction 40-45%: Slow to respond Lasix 40 mg IV twice a day.. Fluid restriction 1800 mL a day. -History of V. tach. -Cardiac catheterization: Normal coronaries -Pacemaker /AICD -Paroxysmal atrial flutter, currently sinus rhythm Telemetry. Lopressor 25 mg by mouth twice a day -Obesity BMI 36.9 Weight loss measures and follow with PCP -Troponin leak from CHF. No ACS. -Dyspepsia symptoms. Patient scheduled for outpatient EGD and colonoscopy in [place]. Continue with IV Lasix. Other medications to continue. Discussed with patient. Fluid restriction 800 mL a day.
[2022-06-09] MEDS: allopurinoL 100 MG TAB PO SCH (20:40)
[2022-06-10 04:01] VITALS: RESP 18
[2022-06-10 07:56] LABS: Potassium 3.8 mmol/L (3.5-5.1)
[2022-06-10] MEDS: FUROSEMIDE 10 MG/ML 4 ML VIAL IV SCH (08:47)
[2022-06-10] MEDS: SPIRONOLACTONE 25 MG TAB PO SCH (08:48)
[2022-06-10] MEDS: ATORVASTATIN 80 MG TAB PO SCH (08:49)
[2022-06-10 09:31] LABS: Chol/HDL Ratio 4.03 Ratio; LDL Cholesterol,Calculated 72.9 mg/dL (0.0-131.0); VLDL Calculation 14.28 mg/dL (5.00-40.00)
[2022-06-10] MEDS ORDERED: METOPROLOL TARTRATE 25 MG TAB PO SCH (11:00)
[2022-06-10 13:10] VITALS: BP 104/53; TEMP 97.8
--- NOTE | 2022-06-10 14:00 | P.PN ---
Subjective Progress Note Date: 06/10/22 HISTORY OF PRESENT ILLNESS: This is a 56-year-old gentleman who sees Dr. Pinon regularly with a past medical history significant for nonischemic cardiomyopathy and also history of sustained ventricular tachycardia status post BiV ICD as well as hypertension and dyslipidemia and obesity presented to the hospital after an episode last night. The patient was in his usual state of health he was sleeping in bed when he woke up complaining of chest discomfort. He tried to walk out of the bed when suddenly he felt that he was about to lose his consciousness. He felt clammy as well. He didn't have chest discomfort. His was at bedside. For that reason he decided to come to the emergency department. Before that episode he was not feeling well. Within the last several months he gained about 20 pounds. He stated that he has been compliant with his medication and he is on diuretic as an outpatient also he was compliant with his diet. He developed also a progressive shortness of breath with exertion within the last several months. He also developed lower edema. During this admission he underwent a workup including an AICD interrogation and that revealed episode of ventricular tachycardia treated. Otherwise the device interrogation showed that the patient was having biventricular pacing in more than 80% of the time. Also device interrogation showed possible fluid overload. When the patient was seen and examined this morning he definitely looks in failure. He does have bilateral lower extremities edema and abdominal distention and he has diminished breathing sounds bilaterally. No chest x-ray ordered. NT proBNP came in to be around 3000 but the patient is somewhat overweight. He underwent an EKG which showed sinus rhythm with ventricular paced rhythm. He underwent a workup for the cardiomyopathy earlier this year including a heart catheterization showed normal coronaries an echo which showed an EF between 40-45%. June [id number] The patient was seen this morning on the floor. He is feeling better. The shortness of breath is definitely better. The lower extremities edema is better as well. He was started on Lasix yesterday 40 mg IV twice a day and he has been diuresing extremely well. Hemodynamically he is stable was marginally low blood pressure. From the cardiac standpoint overview, I would recommend continue the current medical regimen including the current dose of Lasix IV and continue monitor the kidney function and electrolytes. And continue following up with the patient and follow-up echocardiogram which was performed yesterday. 06/10/2022 Patient examined this morning the bedside. Patient follows with a aeronautical products sales engineer out of [facility]. Patient denies chest pain or pressure. He denies shortness of breath. Patient remains on IV Lasix. Echo Cardizem completed reveals ejection fraction 35-40%, [id number] mitral regurgitation and moderate to severe tricuspid regurgitation. PHYSICAL EXAM: VITAL SIGNS: Reviewed. GENERAL: Well-developed in no acute distress. NECK: Supple. No JVD or thyromegaly LUNGS: Respirations even and unlabored. Lungs essentially clear to auscultation bilaterally. HEART: Regular rate and rhythm. S1 and S2 heard. EXTREMITIES: Normal range of motion. No clubbing or cyanosis. Peripheral pulses intact. No lower extremity edema ASSESSMENT: #1 heart failure exacerbation secondary to heart failure with ejection fraction. The patient does have evidence of right and left failure #2 ventricular tachycardia treated with ATP #3 nonischemic cardiomyopathy status post AICD #4 hypertension #5 dyslipidemia, patient denies and is refusing statin therapy #6 obesity PLAN: Discontinue IV lasix. Begin oral lasix Resume metoprolol Discontinue statin as patient refusing Recommend Entresto outpatient. Will defer to patients primary aeronautical products sales engineer. Patient stable for DC home today with outpatient follow up with his primary aeronautical products sales engineer Nurse practitioner note has been reviewed by physician. Signing provider agrees with the documented findings, assessment, and plan of care. Objective - Vital Signs Vital signs: Vital Signs Temp 97.8 F 06/10/22 12:00 Pulse 77 06/10/22 12:00 Resp 18 06/10/22 12:00 BP 104/53 06/10/22 12:00 Pulse Ox 95 06/10/22 12:00 FiO2 Intake & Output 06/09/22 06/10/22 06/10/22 18:59 06:59 18:59 Intake Total 240 118 Output Total 700 900 400 Balance -460 900 -406 Weight 127 kg Intake: Oral 240 118 Output: Urine 700 900 400 Other: Voiding Method Urinal Urinal Urinal # Voids 1 1 - Labs CBC & Chem 7: 06/08/22 02:32 06/10/22 06:35 Labs: Abnormal Lab Results - Last 24 Hours (Table) 06/09/22 06/10/22 Range/Units 06:42 06:35 Carbon Dioxide 33 H (22-30) mmol/L HDL Cholesterol 28.80 L (40.00-60.00) mg/dL
[2022-06-10 14:07] VITALS: PULSE 66
[2022-06-10] MEDS ORDERED: FUROSEMIDE 40 MG TAB PO SCH (18:00)
[2022-06-11] MEDS ORDERED: FUROSEMIDE 80 MG TAB PO SCH (09:00)
--- NOTE | 2022-06-12 15:41 | P.DS ---
Providers Date of admission: 06/08/22 04:20 Expected date of discharge: 06/10/22 Attending physician: Pawan Banuelos Consults: 06/08/22 04:20 Consult Physician Routine Consulting Provider: Rocío Moss Consult Reason/Comments: nstemi Do you want consulting provider notified?: Yes 06/08/22 08:10 Consult Physician Stat Consulting Provider: Rj Quiroga Consult Reason/Comments: bradycardia, elevated troponin Do you want consulting provider notified?: Yes Primary care physician: [facility] Course: Final diagnosis Acute on chronic nonischemic cardiomyopathy with an EF of 40-45% Acute on chronic systolic congestive heart failure exacerbation with component of left and right heart failure History of ventricular tachycardia Recent cardiac catheterization showing normal coronary arteries Pacemaker/AICD placement Paroxysmal atrial flutter obesity with a body mass index of 36.9 Troponin leak from CHF, no ACS Dyspepsia Discharge disposition Patient is being discharged in a stable condition with guarded prognosis to home. Patient will follow-up with BRYCE Gonzales in the outpatient setting upon discharge. Patient is to follow-up with his ladle puller at the scheduled appointment this Friday. Recommend outpatient GI follow-up. Total time taken is greater than 35 minutes. Hospital course This is a 56-year-old male who was recently admitted with CHF exacerbation and was being closely monitored. Patient does follow-up with his ladle puller and has a scheduled appointment this Friday. Patient was having some chest tightness and increased swelling and maintained on IV Lasix with cardiology following. Patient was also continued on fluid restrictions. Patient reports he has multiple medical complications to medicines causing irritable bowel and difficulty with side effects. Patient was tentatively scheduled with GI in the outpatient setting although had to reschedule as he has a ladle puller appointment this Friday. Recommend to call GI and follow-up for rescheduled appointment. patient will be continued on oral Lasix 80 mg daily in the a.m. along with 40 mg in the evening. Patient reports to feeling well and would like to be discharged. Patient has been cleared by cardiology recommending continued follow-up with his scheduled appointment this Friday. Currently no reports of chest pain, shortness of breath, or palpitations. Patient is afebrile. No reports of nausea or vomiting and patient is tolerating diet. Patient will be discharged home today. Guarded prognosis. Physical exam: Gen: This is a 56-year-old male awake, alert and oriented 3, well-developed, well-nourished, obese HEENT: Head is atraumatic, normocephalic. Pupils equal, round. Sclerae is anicteric. NECK: Supple. No JVD. No lymphadenopathy. No thyromegaly. LUNGS: Clear to auscultation. No wheezes or rhonchi. No intercostal retractions. HEART: Regular rate and rhythm. No murmur. ABDOMEN: Soft. Bowel sounds are present. No masses. No tenderness. EXTREMITIES: No pedal edema. No calf tenderness. NEUROLOGICAL: Patient is awake, alert and oriented x3. Cranial nerves 2 through 12 are grossly intact. Please refer to medication reconciliation sheet for a list of medications. The impression and plan of care has been dictated by Coreen Perez, Nurse Practitioner as directed. Dr. Cathy MD I have performed a history and examination and MDM of this patient, discussed the same with the dictator, and agree with the dictator's assessment and plan as written ,documented as a scribe. Based on total visit time, I have performed more than 50% of the visit. Patient Condition at Discharge: Stable Plan - Discharge Summary Discharge Rx Participant: No New Discharge Prescriptions: New Spironolactone [Aldactone] 25 mg PO DAILY #30 tab Furosemide [Lasix] 80 mg PO DAILY #30 tab Furosemide [Lasix] 40 mg PO DAILY@1800 #30 tab Continue allopurinoL [Zyloprim] 100 mg PO HS Potassium Gluconate [Potassium Gluconate ER] 99 mg PO DAILY Metoprolol Tartrate 25 mg PO BID Aspirin 162 mg PO ONCE PRN PRN Reason: Chest Pain Discontinued Torsemide [Demadex] 20 mg PO DAILY Furosemide [Lasix] 80 mg PO DAILY Discharge Medication List Metoprolol Tartrate 25 mg PO BID 01/01/22 [History] Aspirin 162 mg PO ONCE PRN 06/08/22 [History] Potassium Gluconate [Potassium Gluconate ER] 99 mg PO DAILY 06/08/22 [History] allopurinoL [Zyloprim] 100 mg PO HS 06/08/22 [History] Furosemide [Lasix] 40 mg PO DAILY@1800 #30 tab 06/10/22 [Rx] Furosemide [Lasix] 80 mg PO DAILY #30 tab 06/10/22 [Rx] Spironolactone [Aldactone] 25 mg PO DAILY #30 tab 06/10/22 [Rx] Follow up Appointment(s)/Referral(s): Ellie Gonzales NPC [REFERRING] - 06/20/22 9:30 am Patient Instructions/Handouts: Chest Pain (DC) Activity/Diet/Wound Care/Special Instructions: Activity Limited until follow-up Follow-up with primary care provider on discharge Follow-up with her ladle puller at your scheduled appointment this Friday morning Continue taking Lasix 80 mg daily in the a.m. and 40 mg in the p.m. Will need outpatient follow-up with GI services Discharge Disposition: HOME SELF-CARE
== END 2022-06-10 15:21 | disposition home or self-care (01) | DRG 291 ==
LOC: EC 02:21 → 3SCARD 04:20
PROVIDERS: ADMIT Hospitalist; ATTEND Hospitalist
DX: I11.0 Hypertensive heart disease with heart failure (principal); I50.23 Acute on chronic systolic (congestive) heart failure; I47.2 Ventricular tachycardia; I48.92 Unspecified atrial flutter; I42.8 Other cardiomyopathies; F41.0 Panic disorder [episodic paroxysmal anxiety]; I50.814 Right heart failure due to left heart failure; E78.5 Hyperlipidemia, unspecified; E66.9 Obesity, unspecified; Z68.36 Body mass index [BMI] 36.0-36.9, adult; W06.XXXA Fall from bed, initial encounter; R77.8 Other specified abnormalities of plasma proteins; R00.1 Bradycardia, unspecified; I08.1 Rheumatic disorders of both mitral and tricuspid valves; R10.13 Epigastric pain; Z95.810 Presence of automatic (implantable) cardiac defibrillator; Z28.310 Unvaccinated for COVID-19; Z79.899 Other long term (current) drug therapy; Z82.49 Family history of ischemic heart disease and other diseases of the circulatory system
CPT/HCPCS: 36415; 71046; 80048; 80053; 80061; 83735; 83880; 84100; 84484; 85025; 85610; 85730; 93005; 93306; 94760; 99291

== ENCOUNTER 2022-06-29 09:02 | Inpatient (IN) | payer OTHER ==
--- NOTE | 2022-06-29 09:23 | ED ---
General Adult HPI - General Chief complaint: Chest Pain Stated complaint: Chest Pain Time Seen by Provider: 06/29/22 09:05 Source: patient, EMS, RN notes reviewed, old records reviewed Mode of arrival: EMS Limitations: no limitations - History of Present Illness Initial comments: This a 56-year-old male who presents emergency Department after having had 2 syncopal episodes. Patient states he woke up this morning and was feeling fine initially but then became short of breath and started having some chest heaviness and then he passed out according to the report EMS got. Patient did wake up and again started having some chest pain and passed out a second time. When EMS arrived it looked as though the patient may have received a shock because his whole body shook but they are not 100% sure. Patient does not recall being shocked. Patient states currently he feels back to his baseline he is having no difficulty breathing or shortness of breath or chest pain. Patient does have a defibrillator placed because he didn't go into V. tach in the past. Patient has no complaints of pain from passing out. - Related Data Home Medications Medication Instructions Recorded Confirmed Metoprolol Tartrate 25 mg PO BID 01/01/22 06/08/22 Aspirin 162 mg PO ONCE PRN 06/08/22 06/08/22 Potassium Gluconate [Potassium 99 mg PO DAILY 06/08/22 06/08/22 Gluconate ER] allopurinoL [Zyloprim] 100 mg PO HS 06/08/22 06/08/22 Previous Rx's Medication Instructions Recorded Furosemide [Lasix] 40 mg PO DAILY@1800 #30 tab 06/10/22 Furosemide [Lasix] 80 mg PO DAILY #30 tab 06/10/22 Spironolactone [Aldactone] 25 mg PO DAILY #30 tab 06/10/22 Allergies Allergy/AdvReac Type Severity Reaction Status Date / Time No Known Allergies Allergy Verified 12/28/21 09:30 Review of Systems ROS Statement: Those systems with pertinent positive or pertinent negative responses have been documented in the HPI. ROS Other: All systems not noted in ROS Statement are negative. Past Medical History Past Medical History: Atrial Flutter, Heart Failure Additional Past Medical History / Comment(s): PVC's. Cardiomyopathy. Conge stive heart failure. Permanent pacemaker. 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 Past Anesthesia/Blood Transfusion Reactions: No Reported Reaction Type of Cardiac Device: Permanent Pacemaker Device Placement Date:: 2019 Past Psychological History: No Psychological Hx Reported Smoking Status: Never smoker - Past Family History Father Family Medical History: Coronary Artery Disease (CAD), Hypertension Additional Family Medical History / Comment(s): Father had coronary stents/CABG Mother Family Medical History: Congestive Heart Failure (CHF) General Exam - General Exam Comments Initial Comments: GENERAL: Patient is well-developed and well-nourished. Patient is nontoxic and well-hyd rated and is in no acute distress. ENT: Neck is soft and supple. No significant lymphadenopathy is noted. Oropharynx is clear. Moist mucous membranes. Neck has full range of motion without elicit ing any pain. There is no thyroid enlargement and no masses were felt. EYES: The sclera were anicteric and conjunctiva were pink and moist. Extraocular movements were intact and pupils were equal round and reactive to light. Eyelids were unremarkable. PULMONARY: Unlabored respirations. Good breath sounds bilaterally. No audible rales rhonchi or wheezing was noted. CARDIOVASCULAR: There is a regular rate and rhythm without any murmurs gallops or rubs. Femoral pulses are equal bilaterally ABDOMEN: Soft and nontender with normal bowel sounds. No palpable organomegaly was noted. There is no palpable pulsatile mass. SKIN: Skin is clear with no lesions or rashes and otherwise unremarkable. NEUROLOGIC: Patient is alert and oriented x3. Cranial nerves II through XII are grossly intact. Motor and sensory are also intact. Normal speech, volume and content. Symmetrical smile. Cerebellar exam grossly intact. MUSCULOSKELETAL: Normal extremities with adequate strength and full range of motion. No lower extremity swelling or edema. No calf tenderness. LYMPHATICS: No significant lymphadenopathy is noted PSYCHIATRIC: Normal psychiatric evaluation. Limitations: no limitations Course Vital Signs 06/29/22 09:06 Temperature 98.7 F Pulse Rate 67 Respiratory 16 Rate Blood Pressure 114/89 O2 Sat by Pulse 95 Oximetry Medical Decision Making - Medical Decision Making EKG shows paced rhythm at 60 bpm DC interval 170 QRS on it and 10 QT interval 424 QTC is 441. Interrogation revealed that the patient was shocked and the patient was in V. tach possibly V. fib. I started the patient on amiodarone and amiodarone infusion. Patient did get his morning medications of metoprolol in the emergency department. Patient also received a bolus of fluid in the emergency pertinent. I spoke with Dr. milligan about this patient as soon as the patient arrived. I spoke with the [facility] hospitalist agreed to admit the patient admit nancy the patient wrote admitting orders. - Lab Data Result diagrams: 06/29/22 09:19 06/29/22 09:19 Lab Results 06/29/22 06/29/22 06/29/22 Range/Units 09:19 09:19 09:19 WBC 4.3 (3.8-10.6) k/uL RBC 5.08 (4.30-5.90) m/uL Hgb 15.6 (13.0-17.5) gm/dL Hct 47.9 (39.0-53.0) % MCV 94.2 (80.0-100.0) fL MCH 30.8 (25.0-35.0) pg MCHC 32.7 (31.0-37.0) g/dL RDW 14.8 (11.5-15.5) % Plt Count 180 (150-450) k/uL MPV 8.1 Neutrophils % 71 % Lymphocytes % 14 % Monocytes % 6 % Eosinophils % 6 % Basophils % 1 % Neutrophils # 3.0 (1.3-7.7) k/uL Lymphocytes # 0.6 L (1.0-4.8) k/uL Monocytes # 0.3 (0-1.0) k/uL Eosinophils # 0.3 (0-0.7) k/uL Basophils # 0.1 (0-0.2) k/uL PT 14.6 H (9.0-12.0) sec INR 1.4 H (<1.2) APTT 26.1 (22.0-30.0) sec Sodium 141 (137-145) mmol/L Potassium 3.7 (3.5-5.1) mmol/L Chloride 100 (98-107) mmol/L Carbon Dioxide 25 (22-30) mmol/L Anion Gap 16 mmol/L BUN 27 H (9-20) mg/dL Creatinine 1.55 H (0.66-1.25) mg/dL Est GFR (CKD-EPI)AfAm 57 (>60 ml/min/1.73 sqM) Est GFR (CKD-EPI)NonAf 50 (>60 ml/min/1.73 sqM) Glucose 108 H (74-99) mg/dL Calcium 9.7 (8.4-10.2) mg/dL Magnesium 1.6 (1.6-2.3) mg/dL Total Bilirubin 2.4 H (0.2-1.3) mg/dL AST 33 (17-59) U/L ALT 21 (4-49) U/L Alkaline Phosphatase 79 (38-126) U/L Troponin I (0.000-0.034) ng/mL Total Protein 6.9 (6.3-8.2) g/dL Albumin 4.1 (3.5-5.0) g/dL 06/29/22 Range/Units 09:19 WBC (3.8-10.6) k/uL RBC (4.30-5.90) m/uL Hgb (13.0-17.5) gm/dL Hct (39.0-53.0) % MCV (80.0-100.0) fL MCH (25.0-35.0) pg MCHC (31.0-37.0) g/dL RDW (11.5-15.5) % Plt Count (150-450) k/uL MPV Neutrophils % % Lymphocytes % % Monocytes % % Eosinophils % % Basophils % % Neutrophils # (1.3-7.7) k/uL Lymphocytes # (1.0-4.8) k/uL Monocytes # (0-1.0) k/uL Eosinophils # (0-0.7) k/uL Basophils # (0-0.2) k/uL PT (9.0-12.0) sec INR (<1.2) APTT (22.0-30.0) sec Sodium (137-145) mmol/L Potassium (3.5-5.1) mmol/L Chloride (98-107) mmol/L Carbon Dioxide (22-30) mmol/L Anion Gap mmol/L BUN (9-20) mg/dL Creatinine (0.66-1.25) mg/dL Est GFR (CKD-EPI)AfAm (>60 ml/min/1.73 sqM) Est GFR (CKD-EPI)NonAf (>60 ml/min/1.73 sqM) Glucose (74-99) mg/dL Calcium (8.4-10.2) mg/dL Magnesium (1.6-2.3) mg/dL Total Bilirubin (0.2-1.3) mg/dL AST (17-59) U/L ALT (4-49) U/L Alkaline Phosphatase (38-126) U/L Troponin I 0.079 H* (0.000-0.034) ng/mL Total Protein (6.3-8.2) g/dL Albumin (3.5-5.0) g/dL Critical Care Time Critical Care Time: Yes Total Critical Care Time: 35 Disposition Clinical Impression: Defibrillator discharge, V tach, Chest pain Disposition: ADMITTED IP TO THIS HOSP Referrals: Rigoberto Daley MD [Primary Care Provider] - 1-2 days Time of Disposition: 10:39
[2022-06-29] MEDS ORDERED: METOPROLOL TARTRATE 25 MG TAB PO STA (09:25)
[2022-06-29 09:29] LABS: Basophils # (A) 0.1 k/uL (0-0.2); Basophils % (A) 1 %; Eosinophils # (A) 0.3 k/uL (0-0.7); Eosinophils % (A) 6 %; HCT 47.9 % (39.0-53.0); HGB 15.6 gm/dL (13.0-17.5); Lymphocytes # (A) 0.6 k/uL (1.0-4.8); Lymphocytes % (A) 14 %; MCH 30.8 pg (25.0-35.0); MCHC 32.7 g/dL (31.0-37.0); MCV 94.2 fL (80.0-100.0); Mean Platelet Volume 8.1; Monocytes # (A) 0.3 k/uL (0-1.0); Monocytes % (A) 6 %; Neutrophils % (A) 71 %; Platelet Count 180 k/uL (150-450); RBC 5.08 m/uL (4.30-5.90); RDW 14.8 % (11.5-15.5); WBC 4.3 k/uL (3.8-10.6)
--- NOTE | 2022-06-29 09:40 | XR ---
EXAMINATION TYPE: XR chest 2V DATE OF EXAM: 06/29/2022 COMPARISON: 06/08/2022 HISTORY: Chest pain TECHNIQUE: Frontal and lateral views of the chest are obtained. FINDINGS: There is persistent moderate cardiomegaly. There is a 2-lead cardiac pacemaker. The lungs are clear. There is no pleural effusion or pneumothorax. The pulmonary vasculature is not congested. The osseous structures are intact. IMPRESSION: 1. Persistent moderate cardiomegaly unchanged. 2. No acute cardiopulmonary disease.
[2022-06-29 09:56] LABS: INR 1.4 (<1.2); Partial Thromboplastin Time 26.1 sec (22.0-30.0); Prothrombin Time 14.6 sec (9.0-12.0)
[2022-06-29 10:00] LABS: Albumin 4.1 g/dL (3.5-5.0); Calcium 9.7 mg/dL (8.4-10.2); Magnesium 1.6 mg/dL (1.6-2.3); Potassium 3.7 mmol/L (3.5-5.1); Total Bilirubin 2.4 mg/dL (0.2-1.3); Total Protein 6.9 g/dL (6.3-8.2)
[2022-06-29] MEDS ORDERED: SODIUM CHLORIDE 0.9% 500 ML 500 ML IV ONE (10:23)
[2022-06-29] MEDS ORDERED: DEXTROSE 5% IN WATER 100 ML with AMIODARONE 150 MG IV ONE (10:30)
[2022-06-29] MEDS ORDERED: AMIODARONE 360 MG in DEXTROSE 5% IN WATER 200 ML IV ONE ×2 (10:40)
[2022-06-29] MEDS ORDERED: NITROGLYCERIN SL TABS 0.4 MG TAB SUBLINGUAL PRN (10:49)
--- NOTE | 2022-06-29 14:48 | P.CRDCN ---
History of Present Illness Consult date: 06/29/22 Chief complaint: Possible ICD shock History of present illness: This is a 56-year-old gentleman who was known to have severe nonischemic cardiomyopathy was last left ventricular ejection fraction reported around 35- 40% as well as history of sustained ventricular tachycardia status post AICD as well as overweight resented again to the hospital after he had an episode of syncope at home. The patient woke up this morning was feeling fine and he was sitting on the edge of the bed talking to his when suddenly he lost his consciousness for few minutes. Subsequently he woke up and did have another episode of syncope. Ambulance was called and the patient was brought to the emergency department. Definitely the 2 episodes of syncope happened when he was sitting was no prodromal symptoms noted. He was brought to the emergency department where he underwent a workup including AICD interrogations and that revealed 3 episodes of sustained ventricular tachycardia/V. fib terminated using an ATP and ICD shock. The patient at that point was started on amiodarone IV and since then he has been stable and not having any more symptoms nor ICD shocks. He stated that he was not experiencing any chest pain or chest discomfort or shortness of breath. Also he underwent a chest x-ray did not show any acute abnormalities. Troponin came in to be slightly elevated. The patient is known to have nonischemic cardiomyopathy and he underwent a heart catheterization in September and that revealed normal coronaries. Currently he follows with a mexican food machine tender out of the town. He stated that he has been compliant with his medications at home. I reviewed his home medications and currently he is only on beta teofilo as well as diuretics. He is not on any DELMAR inhibitor or ARB. He stated that lately he has not been eating and drinking w ell he has been experiencing some gastrointestinal symptoms and for that reason he has not been eating and drinking well. Further investigation in the emergency department was also performed and showed that his creatinine is a slightly elevated but his potassium has been on the low side which could be contributing to his arrhythmia. Please note that the patient had another admission not long time ago when he presented also with sustained ventricular tachycardia terminated using the device but at that point he was in overt congestive heart failure. This time the patient doesn't seems to be in overt congestive heart failure. Past Medical History Past Medical History: Atrial Flutter, Heart Failure Additional Past Medical History / Comment(s): PVC's. Cardiomyopathy. Congestive heart failure. Permanent pacemaker. 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 Past Anesthesia/Blood Transfusion Reactions: No Reported Reaction Type of Cardiac Device: Permanent Pacemaker Device Placement Date:: 2019 Past Psychological History: No Psychological Hx Reported Smoking Status: Never smoker - Past Family History Father Family Medical History: Coronary Artery Disease (CAD), Hypertension Additional Family Medical History / Comment(s): Father had coronary stents/CABG Mother Family Medical History: Congestive Heart Failure (CHF) Medications and Allergies Home Medications Medication Instructions Recorded Confirmed Type Metoprolol Tartrate 25 mg PO BID 01/01/22 06/29/22 History allopurinoL [Zyloprim] 100 mg PO HS 06/08/22 06/29/22 History Furosemide [Lasix] 80 mg PO DAILY #30 tab 06/10/22 06/29/22 Rx Spironolactone [Aldactone] 25 mg PO DAILY #30 tab 06/10/22 06/29/22 Rx Omeprazole Magnesium [PriLOSEC OTC] 20 mg PO HS 06/29/22 06/29/22 History Potassium Chloride ER [K-Dur 20] 20 meq PO DAILY 06/29/22 06/29/22 History metOLazone 5 mg PO MOWEFR 06/29/22 06/29/22 History Allergies Allergy/AdvReac Type Severity Reaction Status Date / Time No Known Allergies Allergy Verified 12/28/21 09:30 Physical Exam Vitals: Vital Signs Temp Pulse Resp BP Pulse Ox 06/29/22 14:00 22 L 18 111/80 06/29/22 13:30 53 L 16 99/66 96 06/29/22 13:00 56 L 18 102/72 94 L 06/29/22 12:30 49 L 18 94/65 06/29/22 11:02 51 L 18 105/68 96 06/29/22 11:00 48 L 20 102/78 95 06/29/22 10:30 39 L 18 99/60 94 L 06/29/22 10:00 57 L 18 114/89 06/29/22 09:30 51 L 16 114/89 94 L 06/29/22 09:19 50 L 13 114/89 96 06/29/22 09:06 98.7 F 67 16 114/89 95 Intake and Output 06/28/22 06/29/22 06/29/22 22:59 06:59 14:59 Other: Weight 124.738 kg - Constitutional General appearance: no acute distress - Respiratory Respiratory: bilateral: diminished - Cardiovascular Rhythm: regular Heart sounds: normal: S1, S2 Results 06/29/22 09:19 06/29/22 09:19 Cardiac Enzymes 06/29/22 06/29/22 06/29/22 Range/Units 09:19 09:19 12:17 AST 33 (17-59) U/L Troponin I 0.079 H* 0.170 H* (0.000-0.034) ng/mL Coagulation 06/29/22 Range/Units 09:19 PT 14.6 H (9.0-12.0) sec APTT 26.1 (22.0-30.0) sec CBC 06/29/22 Range/Units 09:19 WBC 4.3 (3.8-10.6) k/uL RBC 5.08 (4.30-5.90) m/uL Hgb 15.6 (13.0-17.5) gm/dL Hct 47.9 (39.0-53.0) % Plt Count 180 (150-450) k/uL Comprehensive Metabolic Panel 06/29/22 Range/Units 09:19 Sodium 141 (137-145) mmol/L Potassium 3.7 (3.5-5.1) mmol/L Chloride 100 (98-107) mmol/L Carbon Dioxide 25 (22-30) mmol/L BUN 27 H (9-20) mg/dL Creatinine 1.55 H (0.66-1.25) mg/dL Glucose 108 H (74-99) mg/dL Calcium 9.7 (8.4-10.2) mg/dL AST 33 (17-59) U/L ALT 21 (4-49) U/L Alkaline Phosphatase 79 (38-126) U/L Total Protein 6.9 (6.3-8.2) g/dL Albumin 4.1 (3.5-5.0) g/dL Current Medications Generic Name Dose Route Start Last Admin Trade Name Freq PRN Reason Stop Dose Admin Aspirin 325 mg 06/30/22 09:00 Aspirin 325 Mg Tab PO DAILY MARCELINO Amiodarone HCl 360 mg/ 200 mls @ 33.333 mls/hr 06/29/22 10:40 06/29/22 11:01 Dextrose/Water IV 06/29/22 16:39 1 mg/min .Q6H ONE 33.333 mls/hr Administration Protocol 1 MG/MIN Amiodarone HCl 450 mg/ 250 mls @ 16.667 mls/hr 06/29/22 16:40 Dextrose/Water IV 06/30/22 10:39 .Q15H MARCELINO Protocol 0.5 MG/MIN Nitroglycerin 0.4 mg 06/29/22 10:49 Nitroglycerin Sl Tabs 0.4 Mg Tab SUBLINGUAL Q5M PRN Chest Pain Intake and Output 06/28/22 06/29/22 06/29/22 22:59 06:59 14:59 Other: Weight 124.738 kg Patient Weight 06/30/22 06:59 Weight 124.738 kg 06/29/22 09:19 06/29/22 09:19 Assessment and Plan Assessment: Assessment Sustained ventricular tachycardia, 3 episodes, 2 episodes terminated using ATP and one episode terminated using ICD shock Known severe nonischemic cardiomyopathy Status post AICD Electrolytes imbalance Renal failure Overweight Plan Agree about keeping the patient on amiodarone IV for now Consider switch the patient to amiodarone by mouth down the line Consider adding mexiletine to the current medical regimen DC metoprolol tartrate and start the patient on metoprolol succinate Consider adding DELMAR inhibitor or ARB to the current medical regimen once the creatinine normalized Recent echo showed an EF between 35-40% Follow-up with the patient
[2022-06-29] MEDS ORDERED: Potassium Replacement Protocol 1 EACH MISC MISCELLANE PRN (15:44)
[2022-06-29] MEDS ORDERED: Magnesium Replacement Protocol 1 EACH MISC MISCELLANE PRN (15:44)
[2022-06-29] MEDS ORDERED: ONDANSETRON 4 MG/2 ML VIAL IVP PRN (15:49)
[2022-06-29] MEDS: PANTOPRAZOLE 40 MG/10 ML VIAL IVP SCH ×2 (16:11→20:51)
[2022-06-29] MEDS ORDERED: AMIODARONE 450 MG in DEXTROSE 5% IN WATER 250 ML IV SCH ×2 (16:40)
[2022-06-29] MEDS ORDERED: METOCLOPRAMIDE 5 MG/ML 2 ML VIAL IVP PRN (17:39)
[2022-06-29] MEDS ORDERED: METOCLOPRAMIDE 5 MG/ML 2 ML VIAL IVP STA (17:39)
[2022-06-29] MEDS: HEPARIN SOD,PORK IN 0.45% NACL 25,000 UNIT in 0.45% NACL 1 250ML.BAG IV SCH (18:05)
[2022-06-29 18:23] LABS: Basophils # (A) 0.1 k/uL (0-0.2); Basophils % (A) 1 %; Eosinophils # (A) 0.1 k/uL (0-0.7); Eosinophils % (A) 2 %; HCT 50.5 % (39.0-53.0); HGB 16.7 gm/dL (13.0-17.5); Lymphocytes # (A) 0.7 k/uL (1.0-4.8); Lymphocytes % (A) 9 %; MCH 30.8 pg (25.0-35.0); MCV 93.4 fL (80.0-100.0); Mean Platelet Volume 8.8; Monocytes # (A) 0.4 k/uL (0-1.0); Monocytes % (A) 6 %; Neutrophils # (A) 5.9 k/uL (1.3-7.7); Neutrophils % (A) 81 %; Platelet Count 219 k/uL (150-450); RBC 5.41 m/uL (4.30-5.90); WBC 7.4 k/uL (3.8-10.6)
[2022-06-29 18:26] LABS: INR 1.5 (<1.2); Partial Thromboplastin Time 25.8 sec (22.0-30.0); Prothrombin Time 15.1 sec (9.0-12.0)
[2022-06-29 18:58] LABS: Appearance,Urine Cloudy (Clear); Bilirubin,Urine 1+ (Negative); Blood,Urine Small (Negative); Color,Urine Dark Brown; Glucose,Urine (UA) Negative (Negative); Hyaline Casts,Urine 102 /lpf (0-2); Ketones,Urine Negative (Negative); Leukocyte Esterase,Urine Negative (Negative); Mucus,Urine Few /hpf; Nitrite,Urine Negative (Negative); PH, Urine 5.5 (5.0-8.0); Protein,Urine 3+ (Negative); RBC,Urine 6 /hpf (0-5); Specific Gravity,Urine 1.025 (1.001-1.035); Squamous Epithelial Cell,Urine 3 /hpf (0-4); WBC,Urine 15 /hpf (0-5)
[2022-06-29] MEDS: allopurinoL 100 MG TAB PO SCH (20:51)
[2022-06-29] MEDS ORDERED: PANTOPRAZOLE 40 MG TABLET PO SCH (21:00)
--- NOTE | 2022-06-30 06:17 | P.PN ---
Subjective Progress Note Date: 06/30/22 Principal diagnosis: Sustained ventricular tachycardia This is a 56-year-old gentleman who was known to have severe nonischemic cardiomyopathy was last left ventricular ejection fraction reported around 35- 40% as well as history of sustained ventricular tachycardia status post AICD as well as overweight resented again to the hospital after he had an episode of syncope at home. The patient woke up this morning was feeling fine and he was sitting on the edge of the bed talking to his when suddenly he lost his consciousness for few minutes. Subsequently he woke up and did have another episode of syncope. Ambulance was called and the patient was brought to the emergency department. Definitely the 2 episodes of syncope happened when he was sitting was no prodromal symptoms noted. He was brought to the emergency department where he underwent a workup including AICD interrogations and that revealed 3 episodes of sustained ventricular tachycardia/V. fib terminated using an ATP and ICD shock. The patient at that point was started on amiodarone IV and since then he has been stable and not having any more symptoms nor ICD shocks. He stated that he was not experiencing any chest pain or chest discomfort or shortness of breath. Also he underwent a chest x-ray did not show any acute abnormalities. Troponin came in to be slightly elevated. The patient is known to have nonischemic cardiomyopathy and he underwent a heart catheterization in September and that revealed normal coronaries. Currently he follows with a speech language pathologist assistant out of the town. He stated that he has been compliant with his medications at home. I reviewed his home medications and cu rrently he is only on beta teofilo as well as diuretics. He is not on any DELMAR inhibitor or ARB. He stated that lately he has not been eating and drinking well he has been experiencing some gastrointestinal symptoms and for that reason he has not been eating and drinking well. Further investigation in the emergency department was also performed and showed that his creatinine is a slightly elevated but his potassium has been on the low side which could be contributing to his arrhythmia. Please note that the patient had another admission not long time ago when he presented also with sustained ventricular tachycardia terminated using the device but at that point he was in overt congestive heart failure. This time the patient doesn't seems to be in overt congestive heart failure. Overnight of 2021 The patient was seen this morning. He has been doing good from the cardiovascular standpoint overview. No more episode of sustained ventricular tachycardia noted. Currently he is on amiodarone IV which I'm going to switch him to amiodarone by mouth and taper the dose down. Yesterday he was started on Toprol-XL. He continues to be on diuretics. The potassium was marginally to yesterday which could be contributing to his sustained ventricular tachycardia. We'll follow-up with his potassium as well as with his magnesium today. He might need to be on magnesium supplements. We will stop the heparin in the next 12-24 hours. Objective - Vital Signs Vital signs: Vital Signs Temp 97.9 F 06/30/22 04:00 Pulse 50 L 06/30/22 04:00 Resp 16 06/30/22 04:00 BP 115/63 06/30/22 04:00 Pulse Ox 94 L 06/30/22 04:00 FiO2 Intake & Output 06/29/22 06/29/22 06/30/22 06:59 18:59 06:59 Intake Total 84.167 Balance 84.167 Weight 121.36 kg Intake: IV 10 Invasive Line 1 10 Intake, IV Titration 74.167 Amount Heparin Sod,Pork in 0.45% 74.167 NaCl 25,000 unit In 0.45 % NaCl 1 250ml.bag @ 8.24 UNITS/KG/HR 10 mls/hr IV .Q24H [facility] Rx#:[id number] Other: Voiding Method Toilet Toilet # Voids 2 - Constitutional General appearance: Present: no acute distress - Respiratory Respiratory: bilateral: CTA - Cardiovascular Rhythm: regular Heart sounds: normal: S1, S2 - Labs CBC & Chem 7: 06/29/22 17:39 06/29/22 09:19 Labs: Abnormal Lab Results - Last 24 Hours (Table) 06/29/22 06/29/22 06/29/22 Range/Units 09:19 09:19 09:19 Lymphocytes # 0.6 L (1.0-4.8) k/uL PT 14.6 H (9.0-12.0) sec INR 1.4 H (<1.2) APTT (22.0-30.0) sec BUN 27 H (9-20) mg/dL Creatinine 1.55 H (0.66-1.25) mg/dL Glucose 108 H (74-99) mg/dL Total Bilirubin 2.4 H (0.2-1.3) mg/dL Troponin I (0.000-0.034) ng/mL Urine Protein (Negative) Urine Blood (Negative) Urine Bilirubin (Negative) Urine RBC (0-5) /hpf Urine WBC (0-5) /hpf Hyaline Casts (0-2) /lpf Urine Mucus (None) /hpf 06/29/22 06/29/22 06/29/22 Range/Units 09:19 12:17 15:41 Lymphocytes # (1.0-4.8) k/uL PT (9.0-12.0) sec INR (<1.2) APTT (22.0-30.0) sec BUN (9-20) mg/dL Creatinine (0.66-1.25) mg/dL Glucose (74-99) mg/dL Total Bilirubin (0.2-1.3) mg/dL Troponin I 0.079 H* 0.170 H* 0.243 H* (0.000-0.034) ng/mL Urine Protein (Negative) Urine Blood (Negative) Urine Bilirubin (Negative) Urine RBC (0-5) /hpf Urine WBC (0-5) /hpf Hyaline Casts (0-2) /lpf Urine Mucus (None) /hpf 06/29/22 06/29/22 06/29/22 Range/Units 17:39 17:39 18:30 Lymphocytes # 0.7 L (1.0-4.8) k/uL PT 15.1 H (9.0-12.0) sec INR 1.5 H (<1.2) APTT (22.0-30.0) sec BUN (9-20) mg/dL Creatinine (0.66-1.25) mg/dL Glucose (74-99) mg/dL Total Bilirubin (0.2-1.3) mg/dL Troponin I (0.000-0.034) ng/mL Urine Protein 3+ H (Negative) Urine Blood Small H (Negative) Urine Bilirubin 1+ H (Negative) Urine RBC 6 H (0-5) /hpf Urine WBC 15 H (0-5) /hpf Hyaline Casts 102 H (0-2) /lpf Urine Mucus Few H (None) /hpf 06/30/22 Range/Units 00:33 Lymphocytes # (1.0-4.8) k/uL PT (9.0-12.0) sec INR (<1.2) APTT 39.9 H (22.0-30.0) sec BUN (9-20) mg/dL Creatinine (0.66-1.25) mg/dL Glucose (74-99) mg/dL Total Bilirubin (0.2-1.3) mg/dL Troponin I (0.000-0.034) ng/mL Urine Protein (Negative) Urine Blood (Negative) Urine Bilirubin (Negative) Urine RBC (0-5) /hpf Urine WBC (0-5) /hpf Hyaline Casts (0-2) /lpf Urine Mucus (None) /hpf Assessment and Plan Assessment: Assessment Sustained ventricular tachycardia, 3 episodes, 2 episodes terminated using ATP and one episode terminated using ICD shock Known severe nonischemic cardiomyopathy Status post AICD Electrolytes imbalance Renal failure Overweight Plan DC heparin in the next 12-24 hours Continue the current medical regimen including Toprol-XL Consider adding DELMAR inhibitor once the creatinine is back from the blood work this morning Replace the electrolytes including potassium and magnesium Consider adding magnesium supplement DC amiodarone IV and start the patient on amiodarone by mouth Follow-up with the patient
[2022-06-30] MEDS: AMIODARONE 200 MG TAB PO SCH ×2 (08:30→20:38)
[2022-06-30] MEDS: SPIRONOLACTONE 25 MG TAB PO SCH (08:30)
[2022-06-30] MEDS: ASPIRIN 81 MG PO SCH (08:31)
[2022-06-30] MEDS: PANTOPRAZOLE 40 MG/10 ML VIAL IVP SCH ×2 (08:31→20:38)
[2022-06-30] MEDS: FUROSEMIDE 80 MG TAB PO SCH (08:31)
[2022-06-30] MEDS: POTASSIUM CHLORIDE ER 20 MEQ TAB.ER PO SCH (08:31)
[2022-06-30 08:53] LABS: Basophils # (A) 0.1 k/uL (0-0.2); Basophils % (A) 1 %; Eosinophils # (A) 0.2 k/uL (0-0.7); Eosinophils % (A) 2 %; HCT 48.5 % (39.0-53.0); HGB 15.8 gm/dL (13.0-17.5); Lymphocytes # (A) 0.9 k/uL (1.0-4.8); Lymphocytes % (A) 11 %; MCH 30.7 pg (25.0-35.0); MCHC 32.6 g/dL (31.0-37.0); MCV 94.2 fL (80.0-100.0); Mean Platelet Volume 8.5; Monocytes # (A) 0.6 k/uL (0-1.0); Monocytes % (A) 7 %; Neutrophils # (A) 6.6 k/uL (1.3-7.7); Neutrophils % (A) 77 %; Platelet Count 202 k/uL (150-450); RBC 5.15 m/uL (4.30-5.90); RDW 14.9 % (11.5-15.5); WBC 8.6 k/uL (3.8-10.6)
[2022-06-30] MEDS ORDERED: METOPROLOL SUCCINATE (ER) 25 MG TAB.ER.24H PO SCH (09:00)
[2022-06-30] MEDS ORDERED: ASPIRIN 325 MG TAB PO SCH (09:00)
[2022-06-30 09:12] LABS: African American GFR (CKD) 39 (>60 ml/min/1.73 sqM); Anion Gap 11 mmol/L; Blood Urea Nitrogen 34 mg/dL (9-20); Calcium 9.5 mg/dL (8.4-10.2); Carbon Dioxide 27 mmol/L (22-30); Chloride 100 mmol/L (98-107); Glucose 95 mg/dL (74-99); Magnesium 1.6 mg/dL (1.6-2.3); Non-African American GFR(CKD) 34 (>60 ml/min/1.73 sqM); Potassium 3.8 mmol/L (3.5-5.1); Sodium 138 mmol/L (137-145)
[2022-06-30 09:14] LABS: INR 1.5 (<1.2); Prothrombin Time 15.7 sec (9.0-12.0)
--- NOTE | 2022-06-30 10:58 | HP ---
HISTORY AND PHYSICAL CHIEF COMPLAINT: Chest pain and AICD shock. HISTORY OF PRESENT ILLNESS: This is a 56-year-old gentleman with a past medical history of multiple medical problems, including atrial flutter, cardiomyopathy, CHF, had an AICD placed. The patient had multiple AICD shocks and syncopal episodes this morning. The patient came to [facility], and the patient was past medical history of ventricular tachycardia. Amiodarone drip was initiated. Cardiology evaluation in progress. PAST MEDICAL HISTORY: Reviewed and include atrial flutter, cardiomyopathy, ventricular tachycardia. HOME MEDICATIONS: Reviewed and include rest of medications noted. ALLERGIES: None. FAMILY HISTORY: History of CAD, hypertension. SOCIAL HISTORY: No history of smoking. REVIEW OF SYSTEMS: 14-point review is negative as mentioned earlier. PHYSICAL EXAMINATION: VITAL SIGNS: Pulse is 53, blood pressure 112/60, respirations 16. HEENT: Conjunctivae normal. NECK: No jugular venous distention. CARDIOVASCULAR: S1 and S2. RESPIRATIONS: Breath sounds diminished at the bases. No rhonchi. No crackles. ABDOMEN: Soft, obese. LEGS: No edema. No swelling. CENTRAL NERVOUS SYSTEM: No focal deficits. LABORATORY DATA: Labs reviewed. Creatinine 1.5 ASSESSMENT: 1. ventricular tachycardia and syncope. 2. Troponin 0.170, indeterminate. 3. History of atrial flutter. 4. History of cardiomyopathy. 5. Multiple medical issues. RECOMMENDATIONS: This is a 56-year-old gentleman who presented with multiple complex medical issues. We will monitor the patient closely. Continue with amiodarone drip. Repeat labs. Check magnesium. Otherwise, repeat labs. Cardiology consultation. Prognosis guarded because of multiple complex medical issues chest x-ray was reviewed which showed cardiomyopathy. See orders for details. MMODL / IJN: [id number] / [facility]
[2022-06-30 11:35] LABS: Chol/HDL Ratio 4.42 Ratio; LDL Cholesterol,Calculated 85.9 mg/dL (0.0-131.0)
[2022-06-30] MEDS: SODIUM CHLORIDE 0.9% 1,000 ML IV SCH (11:49)
[2022-06-30] MEDS: HEPARIN SOD,PORK IN 0.45% NACL 25,000 UNIT in 0.45% NACL 1 250ML.BAG IV SCH (18:00)
[2022-06-30] MEDS: allopurinoL 100 MG TAB PO SCH (20:38)
[2022-07-01] MEDS: SODIUM CHLORIDE 0.9% 1,000 ML IV SCH (04:32)
[2022-07-01 07:45] VITALS: RESP 15; TEMP 97.8
[2022-07-01 08:37] LABS: Basophils # (A) 0.1 k/uL (0-0.2); Basophils % (A) 1 %; Eosinophils # (A) 0.2 k/uL (0-0.7); Eosinophils % (A) 4 %; HCT 44.6 % (39.0-53.0); HGB 14.7 gm/dL (13.0-17.5); Lymphocytes # (A) 0.6 k/uL (1.0-4.8); Lymphocytes % (A) 12 %; MCHC 32.9 g/dL (31.0-37.0); Mean Platelet Volume 8.6; Monocytes # (A) 0.3 k/uL (0-1.0); Monocytes % (A) 5 %; Neutrophils # (A) 4.2 k/uL (1.3-7.7); Neutrophils % (A) 76 %; Platelet Count 156 k/uL (150-450); RBC 4.75 m/uL (4.30-5.90); WBC 5.5 k/uL (3.8-10.6)
[2022-07-01] MEDS: PANTOPRAZOLE 40 MG/10 ML VIAL IVP SCH (08:54)
[2022-07-01] MEDS: POTASSIUM CHLORIDE ER 20 MEQ TAB.ER PO SCH (08:54)
[2022-07-01] MEDS: SPIRONOLACTONE 25 MG TAB PO SCH (08:54)
[2022-07-01] MEDS: FUROSEMIDE 80 MG TAB PO SCH (08:54)
[2022-07-01] MEDS: ASPIRIN 81 MG PO SCH (08:54)
[2022-07-01 08:57] LABS: Potassium 3.4 mmol/L (3.5-5.1)
[2022-07-01] MEDS ORDERED: metOLazone 5 MG TAB PO SCH (09:00)
[2022-07-01] MEDS ORDERED: AMIODARONE 200 MG TAB PO SCH (09:00)
[2022-07-01] MEDS ORDERED: METOPROLOL SUCCINATE (ER) 25 MG TAB.ER.24H PO SCH (09:00)
--- NOTE | 2022-07-01 09:11 | PN ---
PROGRESS NOTE SUBJECTIVE: This is a 56-year-old gentleman, who was admitted with AICD shock . Troponin is elevated. Cardiology is following the patient closely. Medication adjusted at this time. No chest pain. No palpitation. OBJECTIVE: VITAL SIGNS: Pulse is 54, blood pressure , respirations 16. HEENT: Conjunctivae are normal. ABDOMEN: Soft. LABORATORY DATA: Reviewed. ASSESSMENT: 1. Sustained ventricular tachycardia and syncope. 2. Troponin 0.170, possible acute lrs-SM-tutwkwy-elevation myocardial infarction. 3. Atrial flutter. 4. History of cardiomyopathy. 5. Multiple medical issues. RECOMMENDATIONS: Recommend to continue current management and symptomatic treatment. Otherwise, closely follow with Cardiology. Adjust medications. Guarded prognosis. Further recommendations to follow. MMADRIANL / IJN: [id number] /
[2022-07-01] MEDS ORDERED: POTASSIUM CHLORIDE ER 20 MEQ TAB.ER PO STA (09:38)
--- NOTE | 2022-07-01 11:19 | P.PN ---
Subjective This is a 56-year-old male with a past medical history of severe nonischemic cardiomyopathy, ejection fraction around 3540 percent, sustained ventricular tachycardia status post Bi V ICD 01/01/2022, chronic heart failure with reduced ejection fraction. He follows in the office with Dr. Pinon. Patient presented to the emergency department with an episode of syncope. 2 episodes of syncope happened when he was sitting was no prodromal symptoms noted. He was brought to the emergency department where he underwent a workup including AICD interro gations and that revealed 3 episodes of sustained ventricular tachycardia/V. fib terminated using an ATP and ICD shock. Patient was started on IV amiodarone, transitioned to PO. He underwent a heart catheterization in September 2021 which revealed normal coronary arteries. Patient seen and examined at bedside, no acute distress. He denies any chest pain, palpitations, lightheadedness or dizziness. No further episodes of ventricular tachycardia. Patient is by the paced on the monitor. Blood pressure 117/72, rate 52, afebrile, saturations 95% room air GENERAL: Well-appearing, well-nourished and in no acute distress. NECK: Supple without JVD or thyromegaly. LUNGS: Breath sounds clear to auscultation bilaterally. Respiration equal and unlabored. No wheezes, rales or rhonchi. HEART: Regular rate and rhythm Systolic ejection murmur No rubs or gallops. S1 and S2 heard. EXTREMITIES: Normal range of motion, no edema. No clubbing or cyanosis. Peripheral pulses intact. ASSESSMENT Sustained ventricular tachycardia, 3 episodes, 2 episodes terminated using ATP and one episode terminated using ICD shock Known severe nonischemic cardiomyopathy Status post AICD Electrolytes imbalance Acute kidney injury PLAN Obtain outpatient records Dr. Mathis review Scarecrow Visual Effectstronic strips Stop IV heparin Continue PO amiodarone Increase metoprolol succinate Decrease metolazone to 2.5mg twice a week Continue lasix and spironolactone at this time. Continue cardiac credit officer renal functions. Further recommendations based on clinical course Nurse Practitioner note has been reviewed, I agree with a documented findings and plan of care. Patient was seen and examined. Objective - Vital Signs Vital signs: Vital Signs Temp 97.8 F 07/01/22 07:43 Pulse 52 L 07/01/22 07:43 Resp 15 07/01/22 07:43 BP 117/72 07/01/22 07:43 Pulse Ox 95 07/01/22 07:43 FiO2 Intake & Output 06/30/22 07/01/22 07/01/22 18:59 06:59 18:59 Intake Total 175.833 118 Balance 175.833 118 Weight 123.2 kg Intake: Intake, IV Titration 175.833 Amount Heparin Sod,Pork in 0.45% 175.833 NaCl 25,000 unit In 0.45 % NaCl 1 250ml.bag @ 8.24 UNITS/KG/HR 10 mls/hr IV .Q24H [facility] Rx#:[id number] Oral 118 Other: Voiding Method Toilet Toilet # Voids 1 2 - Labs CBC & Chem 7: 07/01/22 08:08 07/01/22 08:08 Labs: Abnormal Lab Results - Last 24 Hours (Table) 06/30/22 06/30/22 06/30/22 Range/Units 08:16 08:16 08:16 Lymphocytes # 0.9 L (1.0-4.8) k/uL PT 15.7 H (9.0-12.0) sec INR 1.5 H (<1.2) APTT (22.0-30.0) sec BUN 34 H (9-20) mg/dL Creatinine 2.14 H (0.66-1.25) mg/dL HDL Cholesterol 29.40 L (40.00-60.00) mg/dL 06/30/22 Range/Units 08:16 Lymphocytes # (1.0-4.8) k/uL PT (9.0-12.0) sec INR (<1.2) APTT 54.2 H (22.0-30.0) sec BUN (9-20) mg/dL Creatinine (0.66-1.25) mg/dL HDL Cholesterol (40.00-60.00) mg/dL
--- NOTE | 2022-07-01 12:24 | P.EPPROC ---
- EP Procedure Note Electrophysiology Procedure Note: Biventricular ICD, Medtronic interrogated Patient was admitted with an ICD shock The [email or web address] ICD was interrogated The patient experienced tachycardia with a cycle length of around 330 ms with a one-to-one relationship between atrial and ventricular activity Antitachycardia pacing on the first round failed but it resulted in slowing of the ventricular rate transiently Subsequently around of ATP resulted in acceleration to ventricular fibrillation for which he received an appropriate shock Following that the patient was in an atrial paced rhythm with Bi V pacing Impression Likely atrial tachycardia with RVR with a cycle length of 330 ms with a wide QRS Cannot exclude simultaneous dual atrial and ventricular tachycardia Degeneration to ventricular fibrillation with antitachycardia pacing Review of his previous EP study showed that his AV node function was poor with 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
--- NOTE | 2022-07-01 14:34 | P.PN ---
Subjective Progress Note Date: 07/01/22 This is a 56 year old male admitted with defibrillator firing for a sustained vtach with syncopal episode. Cardiology following patient and his pacemaker was interrogated today. Medications adjusted by cardiology has been started on oral amiodarone and betablocker increased. Patient is also continued on oral lasix, oral aldactone, and metolazone has been discontinued. Creatinine peaked yesterday 2.14 and has improved to 1.80 today. Will discontinue IV fluids and repeat creatinine tomorrow. Patient was hoping for discharge today pending cardiology clearance. No acute events overnight. Potassium replaced today, TSH normal 1.540. Review of Systems Constitutional: Denied any fatigue denied any fever. Cardio vascular: denied any chest pain, palpitations Gastrointestinal: denied any nausea, vomiting, diarrhea Pulmonary: Denied any shortness of breath cough Neurologic denied any new focal deficits All inpatient medications were reviewed and appropriate changes in these medications as dictated in the interval history and assessment and plan. PHYSICAL EXAMINATION: GENERAL: The patient is alert and oriented x3, not in any acute distress. Well developed, well nourished. HEENT: Pupils are round and equally reacting to light. EOMI. No scleral icterus. No conjunctival pallor. Normocephalic, atraumatic. No pharyngeal erythema. No thyromegaly. CARDIOVASCULAR: S1 and S2 present. No murmurs, rubs, or gallops. PULMONARY: Chest is clear to auscultation, no wheezing or crackles. ABDOMEN: Soft, nontender, nondistended, normoactive bowel sounds. No palpable organomegaly. MUSCULOSKELETAL: No joint swelling or deformity. EXTREMITIES: No cyanosis, clubbing, or pedal edema. NEUROLOGICAL: Gross neurological examination did not reveal any focal deficits. SKIN: No rashes. Assessment and plan Assessment Sustained ventricular tachycardia and syncope with defibrillator discharge Troponin elevation Hypokalemia Acute renal injury Hypomagnesemia History of atrial flutter History of cardiomyopathy, nonischemic with an EF of 35-40% History of AICD GI prophylaxis DVT prophylaxis Plan IV heparin discontinued Medications adjusted by cardiology Discontinue IV fluids Monitor renal function, repeat labs in AM Pending discharge when cleared by cardiology The impression and plan of care has been dictated by Joanna Rhodes, Nurse Practitioner as directed. Dr. Cathy MD I have performed a history and physical examination and medical decision making of this patient, discussed the same with the dictator, and agree with the dictators assessment and plan as written, documented as a scribe. Based on total visit time, I have performed more than 50% of this visit. Objective - Vital Signs Vital signs: Vital Signs Temp 97.8 F 07/01/22 07:43 Pulse 59 L 07/01/22 13:45 Resp 15 07/01/22 07:43 BP 105/72 07/01/22 11:36 Pulse Ox 95 07/01/22 11:36 FiO2 Intake & Output 06/30/22 07/01/22 07/01/22 18:59 06:59 18:59 Intake Total 175.833 358 Balance 175.833 358 Weight 123.2 kg Intake: Intake, IV Titration 175.833 Amount Heparin Sod,Pork in 0.45% 175.833 NaCl 25,000 unit In 0.45 % NaCl 1 250ml.bag @ 8.24 UNITS/KG/HR 10 mls/hr IV .Q24H [facility] Rx#:[id number] Oral 358 Other: Voiding Method Toilet Toilet Toilet # Voids 1 2 2 - Labs CBC & Chem 7: 07/01/22 08:08 07/01/22 08:08 Labs: Abnormal Lab Results - Last 24 Hours (Table) 07/01/22 07/01/22 07/01/22 Range/Units 08:08 08:08 08:08 Lymphocytes # 0.6 L (1.0-4.8) k/uL APTT 60.8 H (22.0-30.0) sec Potassium 3.4 L (3.5-5.1) mmol/L BUN 34 H (9-20) mg/dL Creatinine 1.80 H (0.66-1.25) mg/dL Glucose 136 H (74-99) mg/dL Assessment and Plan Time with Patient: Less than 30
[2022-07-01 14:50] LABS: Appearance,Urine Clear (Clear); Bilirubin,Urine Negative (Negative); Blood,Urine Negative (Negative); Color,Urine Yellow; Glucose,Urine (UA) Negative (Negative); Ketones,Urine Negative (Negative); Leukocyte Esterase,Urine Negative (Negative); Nitrite,Urine Negative (Negative); Protein,Urine Negative (Negative); Specific Gravity,Urine 1.008 (1.001-1.035); Urobilinogen,Urine <2.0 mg/dL (<2.0)
[2022-07-01 15:11] VITALS: BP 109/73; PULSE 50
[2022-07-02] MEDS ORDERED: PANTOPRAZOLE 40 MG TABLET PO SCH (07:30)
--- NOTE | 2022-07-02 17:08 | P.DS ---
Providers Date of admission: 06/29/22 10:50 Attending physician: Aldair Nichole Consults: 06/29/22 10:50 Consult Physician Urgent Consulting Provider: [facility] Consult Reason/Comments: V. tach, defibrillator discharge Do you want consulting provider notified?: Yes Primary care physician: Rigoberto Daley Hospital Course: Sustained ventricular tachycardia and syncope with defibrillator discharge Troponin elevation Hypokalemia Acute renal injury Hypomagnesemia History of atrial flutter History of cardiomyopathy, nonischemic with an EF of 35-40% History of AICD Discharge Disposition Patient is stable for discharge. Cleared by cardiology. Patient will discharge on oral amiodarone taper. AICD has been interrogated. He follows with Dr. Pinon in the cardiology office, and Dr. Daley for primary care. Offices will contact patient to schedule follow up appointment. Patients creatinine is improving, recommend to repeat labs in 2 to 3 days and patient is given script prior to discharge. Hospital Course This is a 56 year old male admitted with defibrillator firing for a sustained vtach with syncopal episode. Patient reports a similar episode happening about a month ago and was found to be in congestive heart failure at that time. He had a heart cath earlier this year with normal coronaries. He has known severe nonischemic cardiomyopathy with EF of 35 to 40% history of sustained ventricular tachycarida and AICD implantation. Patient had 2 episodes of syncope when he was sitting on the day of admission and EMS was called. AICD interrogation showed 3 episodes of sustained vtach/ v fib which were terminated using ATP and ICD shock. He was started on IV amiodarone. Patient admitted to the hospital and medications adjusted by cardiology has been started on oral amiodarone and betablocker increased. Patient is also continued on oral lasix, oral aldactone, and metolazone has been changed to twice a week. Creatinine peaked yesterday 2.14 and has improved to 1.80 with gentle hydration, will discontinue IV fluids. Patient was hoping for discharge which was discussed with cardiology and he may discharge home on oral amiodarone taper. TSH normal 1.540. On admission chest xray showing persistent moderate cardiomegaly, no acute cardiopulmonary disease. EKG reviewed showing atrial pacemaker. Patient did have potassium 3.7 on admission and also mild acute renal injury with creatinine 1.55 which states he has not been eating and drinking well at home due to GI upset. He had troponin elevation of 0.079, 0.170, 0.243. Covid negative Cholesterol panel showing triglycerides 73.5, cholesterol 130.0, LDL 85.9, HDL 29.4. Initial urinalysis showing 3+ protein, small blood, 1+ bili, RBC, WBC and hyaline casts. This could be dehydration consistent with patients history. He had gentle hydration and urine was repeated prior to discharge showing clearing of hematuria and was an unremarkable urinalysis. 07/01/2022 Patient is evaluated today sitting up in chair with family at bedside. He denies chest pain, no shortness of breath. Denies palpitations, no dizziness or lightheadedness. Creatinine has improved down to 1.80. He is hoping to be discharged home today. No acute events overnight. Pacer has been interrogated. His lungs are clear, S1 S2 auscultated, abdomen soft and non tender focal neurological exam is negative. Most recent vitals showing temp 97.8, heart rate 52, blood pressure 109/73, 95% room air. Betablocker has been decreased. Patient to be discharged home this afternoon. Total time taken in discharge planning greater than 35 minutes. Please see medication reconciliation for a list of current medications. Thank you for allowing us to participate in the care of this patient. The impression and plan of care has been dictated by Joanna hRodes, Nurse Practitioner as directed. Dr. Cathy MD I have performed a history and physical examination and medical decision making of this patient, discussed the same with the dictator, and agree with the dictators assessment and plan as written, documented as a scribe. Based on total visit time, I have performed more than 50% of this visit. Patient Condition at Discharge: Stable Plan - Discharge Summary New Discharge Prescriptions: New Metoprolol Succinate (ER) [Toprol XL] 25 mg PO DAILY #30 tab Amiodarone [Cordarone] 200 mg PO DAILY 30 Days #86 tab Aspirin 81 mg PO DAILY #30 tab Famotidine [Pepcid] 20 mg PO DAILY #30 tablet Continue allopurinoL [Zyloprim] 100 mg PO HS Spironolactone [Aldactone] 25 mg PO DAILY #30 tab Furosemide [Lasix] 80 mg PO DAILY #30 tab Potassium Chloride ER [K-Dur 20] 20 meq PO DAILY Changed metOLazone 2.5 mg PO MOFR #0 Discontinued Metoprolol Tartrate 25 mg PO BID Omeprazole Magnesium [PriLOSEC OTC] 20 mg PO HS Discharge Medication List allopurinoL [Zyloprim] 100 mg PO HS 06/08/22 [History] Furosemide [Lasix] 80 mg PO DAILY #30 tab 06/10/22 [Rx] Spironolactone [Aldactone] 25 mg PO DAILY #30 tab 06/10/22 [Rx] Potassium Chloride ER [K-Dur 20] 20 meq PO DAILY 06/29/22 [History] Amiodarone [Cordarone] 200 mg PO DAILY 30 Days #86 tab 07/01/22 [Rx] Aspirin 81 mg PO DAILY #30 tab 07/01/22 [Rx] Famotidine [Pepcid] 20 mg PO DAILY #30 tablet 07/01/22 [Rx] Metoprolol Succinate (ER) [Toprol XL] 25 mg PO DAILY #30 tab 07/01/22 [Rx] metOLazone 2.5 mg PO MOFR #0 07/01/22 [Rx] Follow up Appointment(s)/Referral(s): Rigoberto Daley MD [Primary Care Provider] - 1-2 days (please call to scheudle appointment ) Roberto Pinon MD [STAFF PHYSICIAN] - 1 Week (please call to schedule appointment) Ambulatory/Diagnostic Orders: Basic Metabolic Panel [LAB.AMB] Time Frame: 2 Days, Location: None Selected Patient Instructions/Handouts: Chest Pain (DC) Activity/Diet/Wound Care/Special Instructions: Patient is discharged on oral amiodarone taper 400 mg (2 tablets) by mouth twice a day for 2 weeks than 200 mg (1 tablet) by mouth twice a day for 2 weeks, than 200 mg by mouth daily. Stop omeprazole and start pepcid. Omeprazole is contra-indicated in patients with acute renal injury Repeat labs in 2 days to monitor kidney function. Follow up with Dr Daley in 1 to 2 days post discharge Follow up with Dr Pinon in 1 week. Discharge Disposition: HOME SELF-CARE
== END 2022-07-01 17:33 | disposition home or self-care (01) | DRG 309 ==
LOC: EC 09:02 → 3SCARD 10:50
PROVIDERS: ADMIT Hospitalist; ATTEND Hospitalist
PROC: 4B02XTZ Measurement of Cardiac Defibrillator, External Approach (ICD-10-PCS; principal; 2022-07-01)
DX: I47.20 Ventricular tachycardia, unspecified (principal); I42.8 Other cardiomyopathies; I50.22 Chronic systolic (congestive) heart failure; N17.9 Acute kidney failure, unspecified; Z20.822 Contact with and (suspected) exposure to COVID-19; E66.3 Overweight; Z68.35 Body mass index [BMI] 35.0-35.9, adult; E83.42 Hypomagnesemia; E87.6 Hypokalemia; I48.92 Unspecified atrial flutter; Z79.899 Other long term (current) drug therapy; Z86.79 Personal history of other diseases of the circulatory system; Z95.810 Presence of automatic (implantable) cardiac defibrillator
CPT/HCPCS: 36415; 71046; 80048; 80053; 80061; 81001; 81003; 83735; 84443; 84484; 85025; 85610; 85730; 87635; 93005; 96365; 96366; 96375; 99291